=== PATIENT | male | born 1960 | race Caucasian/White ===

== ENCOUNTER 2017-07-26 08:36 | Emergency (ER) | payer BC ==
[~2017-07-26] VITALS: Ht 185.4 cm; Wt 108.0 kg
[~2017-07-26 08:36] MED LIST: AMTUNK
[2017-07-26 08:38] VITALS: Ht 185.4 cm; Wt 108.0 kg
[2017-07-26] MEDS ORDERED: ONDANSETRON INJ 2 MG/ML 2 ML VIAL IV STA (09:12)
[2017-07-26] MEDS ORDERED: SODIUM CHLORIDE 0.9% 1000ML 1,000 ML IV STA (09:12)
[2017-07-26] MEDS ORDERED: MoRPHine SULFATE 4 MG/ML 1 ML CARP\\VIAL IV STA (09:12)
--- NOTE | 2017-07-26 09:30 | EMERGENCY ROOM VISIT NOTE ---
History Report prepared by Bryce: Johny Grey Under the Supervision of: Dr. Jeussita Ho M.D. First contact with patient: 08:53 Chief Complaint: ABDOMINAL PAIN Stated Complaint: PAIN UPPER ABDOMEN THROUGH TO BACK Nursing Triage Summary: pt to the ED with c/o upper abd pain to his back that was constant all night no n/v/d no blood in stool feeling "real bloated" History of Present Illness The patient is a 56 year old male who presents to the Emergency Room with complaints of constant upper abdominal pain starting last night after dinner. The patient currently rates his pain as a 6-7/10 in severity, and he states that it was 9/10 last night, and he describes it as a sharp pain. The patient states that the pain radiates into his back, and he feels like he is having some abdominal bloating. The patient denies any fever, chills, chest pain, shortness of breath, foot swelling, urinary symptoms, nausea, vomiting, diarrhea , and constipation. He reports that he has a cough, though this is not unusual for him. He states that he has not taken any medications for the pain. The patient denies any history of gallbladder problems, diabetes, and GERD. 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 The patient drinks a few beers per month, and he is a former smoker that last smoked a year and a half ago. He notes that he has had similar pain for the past 6 months, and he states that his last bowel moment was this morning, and it was normal. The patient states that he takes indomethacin for headaches. Source of History: patient Onset: last night after dinner Position: abdomen (upper) Symptom Intensity: 6-7/10 Quality: sharp Timing: constant Associated Symptoms: No fevers, No chills, No chest pain, No SOB, No nausea , No vomiting, No diarrhea, No urinary symptoms Note: Associated symptoms: Radiating into his back and abdominal bloating. Review of Systems See HPI for pertinent positives & negatives. A total of 10 systems reviewed and were otherwise negative. Past Medical & Surgical Medical Problems: (1) H/O unilateral nephrectomy (2) HTN (hypertension) Social History Alcohol Use: occasionally Marital Status: Housing Status: lives with family Current/Historical Medications Scheduled Fluoxetine (Prozac), 20 MG PO QAM Indomethacin (Indocin), 25 MG PO TIDM Lisinopril (Zestril), 10 MG PO QAM Pantoprazole (Protonix), 40 MG PO DAILY Scheduled PRN Cyclobenzaprine Hcl (Flexeril), 10 MG PO TID PRN for Muscle Spasms Hydrocodone/Acetaminophen 5MG/325MG ([place] 5MG/325MG), 1 TAB PO TID PRN for Pain Miscellaneous Medications Amitriptyline Hcl (Elavil Unknown Dose) Allergies Uncoded Allergies: N (Allergy, Unknown, 07/06/02) NKDA (Allergy, Unknown, 07/06/02) Physical Exam Vital Signs Date Time Temp Pulse Resp B/P (MAP) Pulse Ox O2 Delivery O2 Flow Rate FiO2 07/26/17 13:20 59 18 129/66 95 Room Air 07/26/17 12:42 60 07/26/17 10:28 36.7 62 16 157/96 95 Room Air 07/26/17 09:06 63 07/26/17 08:38 36.7 74 18 191/83 95 Room Air Physical Exam Vital signs reviewed. General: Well-appearing male, in no significant distress. HEENT: No scleral icterus, PERRLA, neck supple. Atraumatic. Cardiovascular: Regular rate and rhythm, no extra sounds. Pulmonary: Clear to auscultation bilaterally, normal work of breathing. Abdomen: Mild tenderness to the epigastric region. No rebound. No guarding. Some right CVA tenderness. Musculoskeletal: Atraumatic, no peripheral edema. Neurologic: Patient awake alert and oriented x 3 Skin: Warm, dry, no rash Medical Decision & Procedures ER Provider Diagnostic Interpretation: Radiology results as stated below per my review and radiologist interpretation: GALLBLADDER-ABD LIMITED CLINICAL HISTORY: 56 years-old Male presenting with epigastric pain. TECHNIQUE: Real-time grayscale and limited color Doppler ultrasound imaging of the abdomen limited to the right upper quadrant was performed. COMPARISON: None. FINDINGS: Pancreas: Visualized portions of the pancreatic head and body normal. Liver: Normal echogenicity and echotexture. The liver measures 15.9 cm in maximal sagittal dimension. No sonographic evidence of hepatic mass. Main portal vein patent with normal directional flow. Biliary: No intrahepatic biliary ductal dilatation. Common bile duct measures up to 4 mm in diameter. Gallbladder: Gallstone without evidence of gallbladder distention, wall thickening, or pericholecystic fluid or inflammatory change. Sonographic Barrios's sign negative. Right kidney: Normal in appearance. No hydronephrosis. Ascites: None. IMPRESSION: Cholelithiasis without evidence of biliary ductal dilatation or cholecystitis. Electronically signed by: Kan Dos Santos M.D. 07/26/2017 10:12 AM Dictated Date/Time: 07/26/2017 10:11 AM Laboratory Results 07/26/17 09:00 Red Blood Count 5.25, Mean Corpuscular Volume 86.1, Mean Corpuscular Hemoglobin 30.7, Mean Corpuscular Hemoglobin Concent 35.6, Mean Platelet Volume 9.9, Neutrophils (%) (Auto) 73.8, Lymphocytes (%) (Auto) 17.7, Monocytes (%) (Auto) 6.6, Eosinophils (%) (Auto) 1.1, Basophils (%) (Auto) 0.6, Neutrophils # (Auto) 6.12, Lymphocytes # (Auto) 1.47, Monocytes # (Auto) 0.55, Eosinophils # (Auto) 0.09, Basophils # (Auto) 0.05 07/26/17 09:00 Test 07/26/17 09:00 07/26/17 09:23 07/26/17 11:45 White Blood Count 8.30 K/uL (4.8-10.8) Red Blood Count 5.25 M/uL (4.7-6.1) Hemoglobin 16.1 g/dL (14.0-18.0) Hematocrit 45.2 % (42-52) Mean Corpuscular Volume 86.1 fL (80-100) Mean Corpuscular Hemoglobin 30.7 pg (25-34) Mean Corpuscular Hemoglobin Concent 35.6 g/dl (32-36) Platelet Count 298 K/uL (130-400) Mean Platelet Volume 9.9 fL (7.4-10.4) Neutrophils (%) (Auto) 73.8 % Lymphocytes (%) (Auto) 17.7 % Monocytes (%) (Auto) 6.6 % Eosinophils (%) (Auto) 1.1 % Basophils (%) (Auto) 0.6 % Neutrophils # (Auto) 6.12 K/uL (1.4-6.5) Lymphocytes # (Auto) 1.47 K/uL (1.2-3.4) Monocytes # (Auto) 0.55 K/uL (0.11-0.59) Eosinophils # (Auto) 0.09 K/uL (0-0.5) Basophils # (Auto) 0.05 K/uL (0-0.2) RDW Standard Deviation 40.9 fL (36.4-46.3) RDW Coefficient of Variation 13.0 % (11.5-14.5) Immature Granulocyte % (Auto) 0.2 % Immature Granulocyte # (Auto) 0.02 K/uL (0.00-0.02) Anion Gap 6.0 mmol/L (3-11) Est Creatinine Clear Calc Drug Dose 94.6 ml/min Estimated GFR () 85.0 Estimated GFR (Non- 73.3 BUN/Creatinine Ratio 12.1 (10-20) Calcium Level 8.7 mg/dl (8.5-10.1) Total Bilirubin 0.5 mg/dl (0.2-1) Direct Bilirubin 0.1 mg/dl (0-0.2) Aspartate Amino Transf (AST/SGOT) 21 U/L (15-37) Alanine Aminotransferase (ALT/SGPT) 52 U/L (12-78) Alkaline Phosphatase 147 U/L (45-117) Total Protein 6.8 gm/dl (6.4-8.2) Albumin 3.6 gm/dl (3.4-5.0) Lipase 202 U/L (73-393) Bedside D-Dimer 327 ng/mlFEU (0-450) Urine Color YELLOW Urine Appearance CLEAR (CLEAR) Urine pH 5.5 (4.5-7.5) Urine Specific [place] 1.017 (1.000-1.030) Urine Protein 3+ (NEG) Urine Glucose (UA) NEG (NEG) Urine Ketones NEG (NEG) Urine Occult Blood NEG (NEG) Urine Nitrite NEG (NEG) Urine Bilirubin NEG (NEG) Urine Urobilinogen NEG (NEG) Urine Leukocyte Esterase NEG (NEG) Urine WBC (Auto) 1-5 /hpf (0-5) Urine RBC (Auto) 0-4 /hpf (0-4) Urine Hyaline Casts (Auto) 0 /lpf (0-5) Urine Epithelial Cells (Auto) 5-10 /lpf (0-5) Urine Bacteria (Auto) NEG (NEG) Laboratory results per my review. Medications Administered Medications (Trade) Dose Ordered Sig/[place] Route Start Time Stop Time Status Last Admin Dose Admin Sodium Chloride 1,000 ml @ 200 mls/hr Q5H STAT IV 07/26/17 09:12 07/26/17 14:11 DC 07/26/17 09:25 200 MLS/HR Morphine Sulfate (MoRPHine SULFATE INJ) 4 mg NOW STAT IV 07/26/17 09:12 07/26/17 09:17 DC 07/26/17 09:28 4 MG Ondansetron HCl (Zofran Inj) 4 mg NOW STAT IV 07/26/17 09:12 07/26/17 09:17 DC 07/26/17 09:25 4 MG Lidocaine HCl (Viscous Lidocaine 2% Soln) 10 ml NOW STAT PO 07/26/17 10:24 07/26/17 10:25 DC 07/26/17 11:04 10 ML Al Hydroxide/Mg Hydroxide (Maalox Susp) 30 ml NOW STAT PO 07/26/17 10:24 07/26/17 10:25 DC 07/26/17 11:04 30 ML ED Course 0853: Past medical records reviewed. The patient was evaluated in room A4. A complete history and physical examination was performed. 0912: Zofran 4mg IV, Morhpine Sulfate 4mg IV, Sodium Chloride 1000 ml @ 200 mls/ hr IV 1024: Maalox Susp 30ml PO, Viscous Lidocaine 2% 10ml PO 1133: I reevaluated the patient, and he was doing well. 1350: Upon reevaluation, the patient appeared to have improvement of his symptoms. I discussed findings with him. He verbalized agreement of the treatment plan. He was discharged home. Medical Decision Differential diagnosis: Etiologies such as appendicitis, diverticulitis, PUD, biliary pathology, UTI, pancreatitis, obstruction, mesenteric ischemia, aortic pathology, infections, inflammatory bowel disease, renal colic, as well as others were entertained. This patient was evaluated and appeared to be in no significant distress. Physical examination reveals epigastric abdominal tenderness. Patient was hydrated with normal saline solution, given IV morphine and Zofran for his discomfort. Ultrasound right upper quadrant consistent with cholelithiasis without evidence of acute cholecystitis. Laboratory work is fairly unrevealing. Patient was informed of the findings. I suspect the patient is suffering from an acute gastritis related to his NSAID use rather than asymptomatic cholelithiasis. The patient was referred to general surgery for evaluation of the gallbladder. He was advised to stop taking the indomethacin. He will start Protonix 40 mg daily. He will return to the ER for worsening of symptoms or any medical concerns. Medication Reconcilliation Current Medication List: was personally reviewed by me Blood Pressure Screening Patient's blood pressure: Elevated blood pressure Blood pressure disposition: Elevated BP felt to be situational Impression Primary Impression: Gastritis Additional Impression: Cholelithiasis Scribe Attestation The scribe's documentation has been prepared under my direction and personally reviewed by me in its entirety. I confirm that the note above accurately reflects all work, treatment, procedures, and medical decision making performed by me. Departure Information Dispostion Home / Self-Care Prescriptions Hydrocodone/Acetaminophen 5MG/325MG ([place] 5MG/325MG) Tab 1 TAB PO TID Y for Pain for 5 Days, #15 TAB PRN PAIN Prov: Jesusita Ho M.D. 07/26/17 Pantoprazole (Protonix) 40 Mg Tab 40 MG PO DAILY, #30 TAB Prov: Jesusita Ho M.D. 07/26/17 Referrals Tommie Patterson (PCP) Forms Call Back Authorization, HOME CARE DOCUMENTATION FORM, IMPORTANT VISIT INFORMATION Patient Instructions My [facility] Additional Instructions Diagnosis: Gastritis, cholelithiasis Protonix 40 mg daily for the next 30 days. Stop taking the indomethacin. Follow-up with your physician for reevaluation, contact general surgery for evaluation of your gallbladder. Return to the emergency department for worsening of symptoms or any medical concerns. Problem Qualifiers
[2017-07-26 09:39] LABS: BASO % 0.6 %; BASO ABS # 0.05 K/uL (0-0.2); EOS % 1.1 %; EOS ABS # 0.09 K/uL (0-0.5); HEMATOCRIT 45.2 % (42-52); HEMOGLOBIN 16.1 g/dL (14.0-18.0); IG# 0.02 K/uL (0.00-0.02); LYMPH % 17.7 %; LYMPH ABS # 1.47 K/uL (1.2-3.4); MEAN CELL VOLUME 86.1 fL (80-100); MEAN CORPUSCULAR HEMOGLOBIN 30.7 pg (25-34); MEAN CORPUSCULAR HGB CONC 35.6 g/dl (32-36); MEAN PLATELET VOLUME 9.9 fL (7.4-10.4); MONO % 6.6 %; MONO ABS # 0.55 K/uL (0.11-0.59); NEUT % 73.8 %; NEUT ABS # 6.12 K/uL (1.4-6.5); PLATELET COUNT 298 K/uL (130-400); RED CELL DISTRIBUTION WIDTH SD 40.9 fL (36.4-46.3)
[2017-07-26 10:07] LABS: ALBUMIN 3.6 gm/dl (3.4-5.0); CALCIUM 8.7 mg/dl (8.5-10.1); CREATININE 1.11 mg/dl (0.60-1.40); POTASSIUM 4.4 mmol/L (3.5-5.1)
[2017-07-26] MEDS ORDERED: FLUO20CA35 PO (10:07)
[2017-07-26] MEDS ORDERED: LISI-461 PO (10:07)
[2017-07-26] MEDS ORDERED: CYCL5TAB PO (10:07)
[2017-07-26 10:09] LABS: TOTAL PROTEIN 6.8 gm/dl (6.4-8.2)
--- NOTE | 2017-07-26 10:13 | DIAGNOSTIC IMAGING REPORT ---
GALLBLADDER-ABD LIMITED CLINICAL HISTORY: 56 years-old Male presenting with epigastric pain. TECHNIQUE: Real-time grayscale and limited color Doppler ultrasound imaging of the abdomen limited to the right upper quadrant was performed. COMPARISON: None. FINDINGS: Pancreas: Visualized portions of the pancreatic head and body normal. Liver: Normal echogenicity and echotexture. The liver measures 15.9 cm in maximal sagittal dimension. No sonographic evidence of hepatic mass. Main portal vein patent with normal directional flow. Biliary: No intrahepatic biliary ductal dilatation. Common bile duct measures up to 4 mm in diameter. Gallbladder: Gallstone without evidence of gallbladder distention, wall thickening, or pericholecystic fluid or inflammatory change. Sonographic Barrios's sign negative. Right kidney: Normal in appearance. No hydronephrosis. Ascites: None. IMPRESSION: Cholelithiasis without evidence of biliary ductal dilatation or cholecystitis. Electronically signed by: Kan Dos Santos M.D. 07/26/2017 10:12 AM Dictated Date/Time: 07/26/2017 10:11 AM
[2017-07-26] MEDS ORDERED: CYCL10TA6 PO (10:15)
[2017-07-26] MEDS ORDERED: INDO-22 PO (10:16)
[2017-07-26] MEDS ORDERED: ALUMINUM/MAGNESIUM SUSP 30 ML UDC PO STA (10:24)
[2017-07-26] MEDS ORDERED: LIDOCAINE HCL 2% VISC SOLN 20 ML UDC PO STA (10:24)
[2017-07-26 10:28] VITALS: TEMP 36.7
[2017-07-26 13:20] VITALS: BP 129/66; PULSE 59; O2SAT 95
[2017-07-26] MEDS ORDERED: PANT40TA PO (13:29)
[2017-07-26] MEDS ORDERED: HYDR-5688 PO (14:27)
== END 2017-07-26 14:01 | disposition home or self-care (01) ==
LOC: C.EDB 08:38 → C.EDA 14:01
DX: K29.70 Gastritis, unspecified, without bleeding (principal); K80.20 Calculus of gallbladder without cholecystitis without obstruction; M54.9 Dorsalgia, unspecified; R05 Cough; I10 Essential (primary) hypertension; Z90.5 Acquired absence of kidney; Z79.899 Other long term (current) drug therapy; Z87.891 Personal history of nicotine dependence

== ENCOUNTER 2017-08-09 08:37 | Day surgery (SDC) | payer BC ==
[2017-08-03 14:15] VITALS: BMI 31.0
--- NOTE | 2017-08-03 14:40 | PAT Medication Instructions ---
Service Date Aug 03, 2017. Current Home Medication List Cyclobenzaprine Hcl (Flexeril), 10 MG PO TID PRN for Muscle Spasms Fluoxetine (Prozac), 20 MG PO QAM Indomethacin (Indocin), 25 MG PO BIDM Lisinopril (Prinivil), 20 MG PO QAM Pantoprazole (Protonix), 20 MG PO QAM Medication Instructions For Your Scheduled Surgery - Check with surgeon for instructions: Indomethacin (Indocin), 25 MG PO BIDM - Hold the following medications the morning of surgery: Cyclobenzaprine Hcl (Flexeril), 10 MG PO TID PRN for Muscle Spasms Lisinopril (Prinivil), 20 MG PO QAM - Take the following medications the morning of surgery with a sip of water: Pantoprazole (Protonix), 20 MG PO QAM Fluoxetine (Prozac), 20 MG PO QAM - Take the following medications as scheduled the night before surgery: Cyclobenzaprine Hcl (Flexeril), 10 MG PO TID PRN for Muscle Spasms (if needed) If you have any questions please call us at [phone] or [phone] or [phone]
--- NOTE | 2017-08-03 15:45 | DIAGNOSTIC IMAGING REPORT ---
CHEST 2 VIEWS ROUTINE HISTORY: Preop. COMPARISON: None. FINDINGS: The lungs are clear. Cardiac silhouette is normal in size. No pleural effusions. No pneumothorax. IMPRESSION: No acute process. Electronically signed by: Meliton De Paz M.D. 08/03/2017 3:43 PM Dictated Date/Time: 08/03/2017 3:42 PM
[~2017-08-09] VITALS: Ht 185.4 cm; Wt 107.9 kg
[~2017-08-09 08:37] MED LIST changes: -AMTUNK; +CEFAZOLIN 2000MG IV PUSH 15 ML IV SCH; +CYCL10TA6 PO; +FLUO20CA35 PO; +INDO-22 PO; +LACTATED RINGER'S 1000ML 1,000 ML IV SCH; +LISI20TA3 PO; +PRT/20 PO
[2017-08-09] MEDS ORDERED: HYDROmorphone INJ 1 MG/ML SYR IV PRN (08:45)
[2017-08-09] MEDS ORDERED: EpHEDrine SULFATE INJ 50 MG/ML AMP IV PRN (08:45)
[2017-08-09] MEDS ORDERED: ATROPINE SULFATE 0.1 MG/ML 5ML SYR IV PRN (08:45)
[2017-08-09] MEDS ORDERED: ONDANSETRON INJ 2 MG/ML 2 ML VIAL IV PRN ×2 (08:45→13:00)
[2017-08-09 09:01] VITALS: BP 163/98; PULSE 68; TEMP 36.7; O2SAT 95; Ht 185.4 cm; Wt 107.9 kg
[2017-08-09] MEDS ORDERED: NEOSTIGMINE METHYLSULFATE 5 MG/5 ML SYR ONE (10:37)
[2017-08-09] MEDS ORDERED: ROCURONIUM BROMIDE 10 MG/ML 5 ML VIAL IV ONE (10:37)
[2017-08-09] MEDS ORDERED: LIDOCAINE 2% 20 MG/ML 5ML SYR IV ONE (10:37)
[2017-08-09] MEDS ORDERED: PROPOFOL IV EMULSION 10 MG/ML 20 ML VIAL IV ONE (10:37)
[2017-08-09] MEDS ORDERED: LIDOCAINE HCL 2% 2 ML VIAL (20MG/ML) ONE (10:37)
[2017-08-09] MEDS ORDERED: GLYCOPYRROLATE INJ 0.2 MG/ML VIAL ONE (10:37)
[2017-08-09] MEDS ORDERED: FENTANYL CITRATE INJ 50 MCG/1 ML 2 ML VIAL ONE ×2 (10:37→12:59)
[2017-08-09] MEDS ORDERED: MIDAZOLAM HCL 1 MG/ML 2ML VIAL ONE (10:37)
[2017-08-09] MEDS ORDERED: DEXAMETHASONE SOD INJ 4 MG/ML VIAL ONE (10:37)
[2017-08-09] MEDS ORDERED: ONDANSETRON INJ 2 MG/ML 2 ML VIAL ONE (10:37)
--- NOTE | 2017-08-09 10:53 | History & Physical Bridge Note ---
H&P Re-Evaluation Bridge Note: I have examined the patient, reviewed the History & Physical and in the interval since the performance of the History & Physical I have noted the following changes of clinical significance: No changes noted
[2017-08-09] MEDS ORDERED: OXYC-57 PO (10:58)
--- NOTE | 2017-08-09 11:00 | Discharge Instructions ---
Discharge Instructions Date of Service Aug 09, 2017. Visit Reason for Visit: Cholelithiasis, Umbilical Hernia Discharge Discharge Diagnosis / Problem: laparoscopic cholecystectomy Discharge Goals Goal(s): Decrease discomfort Activity Recommendations Activity Limitations: as noted below Lifting Limitations: no more than 10 pounds Shower/Bathe: no limitations Driving or Machine Use: resume 3 days after discharge Anesthesia . Post Anesthesia Instructions: If you have had General Anesthesia or IV Sedation: * Do not drive today. * Resume driving when surgeon permits. * Do not make important decisions or sign legal documents today. * Call surgeon for: 1. Temperature elevations greater than 101 degrees F. 2. Uncontrollable pain. 3. Excessive bleeding. 4. Persistent nausea and vomiting. 5. Medication intolerance (nausea, vomiting or rash). * For nausea and vomiting use only clear liquids such as: tea, soda, bouillon until nausea subsides, then gradually increase diet as tolerated. * If you have any concerns or questions, call your surgeon's office. If physician is unavailable and it is an emergency, call 911 or go to the nearest emergency room. . Instructions / Follow-Up Instructions / Follow-Up Dr. Alston in 1-2 weeks as planned, call [phone] if you do not have an appt or have any questions Diet Recommendations Recommended Home Diet: no limitations Pending Studies Studies pending at discharge: yes List of pending studies: pathology Medical Emergencies . Who to Call and When: Medical Emergencies: If at any time you feel your situation is an emergency, please call 911 immediately. . Non-Emergent Contact Non-Emergency issues call your: Surgeon Call Non-Emergent contact if: you have a fever, temperature is above 101.5, your pain is not controlled, wound has increased redness, you have any medication questions . . "Provider Documentation" section prepared by Terence Kuhn. .
[2017-08-09] MEDS ORDERED: BUPIVACAINE 0.5 % 5 MG/1 ML MPF 30ML VIAL ONE (11:09)
[2017-08-09] MEDS ORDERED: EpHEDrine SULFATE INJ 50 MG/ML AMP ONE (11:47)
--- NOTE | 2017-08-09 12:51 | [facility] Post Operative Brief Note ---
Immediate Operative Summary Operative Date Aug 09, 2017. Pre-Operative Diagnosis Cholelithiasis, Umbilical Hernia Post-Operative Diagnosis Cholelithiasis with chronic cholecystitis, Umbilical Hernia Procedure(s) Performed Laparoscopic Cholecystectomy, Umbilical Hernia Repair Surgeon Dr. Alston Financial Service Representative Surgeon(s) Bola Kuhn PA-C Estimated Blood Loss 7 cc Findings Consistent with Post-Op Diagnosis Window of safety obtained, umbilical hernia closed primarily Specimens A: Gallbladder and contents Drains None Anesthesia Type General Complication(s) none Disposition Accompanied Pt To Recover: no Disposition: Recovery Room / PACU
--- NOTE | 2017-08-09 12:58 | [facility] Operative Report ---
Operative Report Operative Date Aug 09, 2017. Pre-Operative Diagnosis Cholelithiasis, Umbilical Hernia Post-Operative Diagnosis Cholelithiasis with chronic cholecystitis, umbilical hernia Procedure(s) Performed Laparoscopic cholecystectomy, primary umbilical hernia repair Surgeon Dr. Alston Speech And Hearing Director Surgeon(s) Bola Kuhn PA-C Estimated Blood Loss 7 cc Findings Window of safety obtained, umbilical hernia defect closed primarily Specimens A: Gallbladder and contents Drains None Anesthesia General Complication(s) None Disposition Recovery Room / PACU Indications 56-year-old male with symptomatic cholelithiasis as well as symptomatic reducible umbilical hernia, plan for laparoscopic cholecystectomy with possible cholangiogram and open umbilical hernia repair. The risks of the procedure were discussed, all questions were answered, and the patient agreed to proceed with surgery as planned. Description of Procedure The patient was properly identified, consented, and taken to the operating room where he was placed in the supine position. General endotracheal anesthesia was induced. SCDs and a safety belt were placed. Preoperative antibiotics were administered. The patient's abdomen was prepped and draped in the standard sterile fashion. A surgical timeout was performed and all parties were in agreement that this was the correct patient and procedure to be performed and we continued as planned. A curvilinear infraumbilical incision was made and deepened down to the fascia with blunt dissection. The umbilical stalk was circumferentially dissected with a Olena, and divided below the level of the skin. A 3 cm fascial defect was encountered. The hernia was reduced. The fascia anteriorly and posteriorly was cleared of investing tissue for several centimeters. Stay suture of 0 Vicryl was placed and a Maloney trocar was inserted. The abdomen was insufflated with carbon dioxide which the patient tolerated without incident. The laparoscope was inserted and no damage from initial trocar placement was noted, no gross abnormalities were noted within the 4 quadrants of the abdomen. 5 mm ports were then placed in the subxiphoid position in the midline and 2 in the right subcostal position. The patient was placed in reverse Trendelenburg position and rotated towards the left. The dome of the gallbladder was retracted towards the left upper quadrant and the infundibulum was retracted toward the right lower quadrant revealing Calot' s triangle. There is moderate inflammation and the omentum was densely adhesed to the gallbladder. This is taken down with a combination of blunt dissection and cautery. Peritoneal attachments were taken down with electrocautery and blunt dissection. The cystic duct was circumferentially dissected. A window of safety was obtained showing the cystic duct entering the gallbladder with no aberrant structures noted. The cystic duct was doubly clipped and divided. 2 small cystic arteries were identified and clipped and divided. The gallbladder was then lifted off the gallbladder fossa with electrocautery. The gallbladder was placed in an Endo Catch bag and removed through the umbilical port site. The right upper quadrant was irrigated and hemostasis was found to be good. 5 mm trochars were removed under direct visualization and the abdomen was allowed to collapse. Hemostasis was achieved within the wound. The hernia defect was closed primarily with interrupted 0 Nurolon sutures. The wound was irrigated and hemostasis confirmed. The umbilicus was tacked down to the fascia with 3-0 Vicryl sutures. Local anesthetic in the form of 0.5% Marcaine was injected in the fascia and along the skin incision. The skin was closed with interrupted 3- 0 Vicryl deep dermal sutures, followed by 4-0 Monocryl running subcuticular suture. The skin of all ports was closed with 4-0 Monocryl subcuticular sutures. Dermabond was placed over the wounds. The patient was extubated in the operating room and taken to the PACU where he recovered without apparent incident. All sponge, instrument and needle counts were correct at the conclusion of the procedure. The patient tolerated the procedure well. The physician's primary teaching assistant was present and scrubbed for the entirety of the case. He was essential in positioning the patient, prepping and draping, entry to the abdomen, retraction and exposure, controlling the camera, removal of the gallbladder, closure of the incisions, and placement of the dressings. I attest to the content of the Intraoperative Record and any orders documented therein. Any exceptions are noted below.
[2017-08-09] MEDS ORDERED: OXYCODONE/ACETAMINOPHEN 5-325 TAB PO PRN (13:00)
[2017-08-09] MEDS ORDERED: LACTATED RINGER'S 1000ML 1,000 ML IV SCH (13:00)
[2017-08-09] MEDS ORDERED: MoRPHine SULFATE 2 MG/ML CARP IV PRN (13:00)
[2017-08-09] MEDS: FENTANYL CITRATE INJ 50 MCG/1 ML 2 ML VIAL IV PRN ×4 (13:08→13:28)
[2017-08-09] MEDS ORDERED: LABETALOL HCL IV 5 MG/ML 20ML IV ONE (13:22)
[2017-08-09] MEDS ORDERED: LABETALOL HCL IV 5 MG/ML 20ML IV PRN (13:30)
[2017-08-09] MEDS ORDERED: HydrALAZINE HCL 20 MG/ML VIAL ONE (13:40)
[2017-08-09] MEDS ORDERED: HydrALAZINE HCL 20 MG/ML VIAL IV. ONE (13:45)
[2017-08-09] MEDS ORDERED: HYDROmorphone INJ 1 MG/ML SYR ONE (13:54)
--- NOTE | 2017-08-09 14:24 | Anesthesiology Progress Note ---
Anesthesia Post Op Note Date & Time Aug 09, 2017 at 14:23 Vital Signs Pain Intensity: 6 Vital Signs Past 12 Hours Date Time Temp Pulse Resp B/P (MAP) Pulse Ox O2 Delivery O2 Flow Rate FiO2 08/09/17 14:10 91 16 176/102 92 Nasal Cannula 4 08/09/17 14:00 69 16 164/102 92 Nasal Cannula 4 08/09/17 13:50 84 16 177/103 91 Nasal Cannula 4 08/09/17 13:40 61 14 186/111 91 Nasal Cannula 4 08/09/17 13:30 76 16 173/108 91 Nasal Cannula 4 08/09/17 13:20 77 12 183/121 91 Nasal Cannula 4 08/09/17 13:10 88 12 174/113 91 Nasal Cannula 4 08/09/17 13:04 36.0 92 12 192/119 95 Oxymask 5 08/09/17 09:01 36.7 68 20 163/98 (119) 95 Room Air Notes Mental Status: alert / awake / arousable, participated in evaluation Pt Amnestic to Procedure: Yes Nausea / Vomiting: adequately controlled Pain: adequately controlled Airway Patency, RR, SpO2: stable & adequate BP & HR: stable & adequate Hydration State: stable & adequate Anesthetic Complications: no major complications apparent Anesthetic Complications: patient is a poorly controlled HTN - BP in PACU near preoperative baseline after labetalol, hydralazine, fentanyl and dilaudid. Plan to continue to monitor in phase 2.
[2017-08-09 14:35] VITALS: BP 168/92; PULSE 94; TEMP 37; O2SAT 92
[2017-08-09 15:08] VITALS: BP 181/99; PULSE 104; TEMP 36.7; O2SAT 92
[2017-08-09 15:38] VITALS: BP 182/95; PULSE 99; TEMP 36.6; O2SAT 93
[2017-08-09 16:30] VITALS: BP 180/96; PULSE 104; TEMP 37.1; O2SAT 91
[2017-08-09] MEDS ORDERED: KETOROLAC TROMETHAMINE 30 MG/ML VIAL IV. ONE (17:00)
[2017-08-09] MEDS ORDERED: NURSING VERBAL MED ORDER ONE (17:00)
[2017-08-09 17:25] VITALS: BP 160/82; PULSE 100; TEMP 36.6; O2SAT 92
== END 2017-08-09 18:20 | disposition home or self-care (01) ==
LOC: C.ACU 08:37
PROVIDERS: ATTEND Surgery
DX: K80.20 Calculus of gallbladder without cholecystitis without obstruction (principal); K42.9 Umbilical hernia without obstruction or gangrene; F32.9 Major depressive disorder, single episode, unspecified; E66.9 Obesity, unspecified; Z68.31 Body mass index [BMI] 31.0-31.9, adult; I10 Essential (primary) hypertension; Z90.5 Acquired absence of kidney; Z87.891 Personal history of nicotine dependence; Z98.890 Other specified postprocedural states; Z79.899 Other long term (current) drug therapy; Z87.09 Personal history of other diseases of the respiratory system

== ENCOUNTER 2021-04-26 15:32 | Inpatient (IN) ==
[2021-04-26] MEDS ORDERED: ONDANSETRON INJ 2 MG/ML 2 ML VIAL IV STA (16:34)
[2021-04-26 16:35] LABS: Hematocrit (blood only) 51.3 % (42-52); Hemoglobin 17.6 g/dL (14.0-18.0); Mean Corpuscular Hemoglobin 30.1 pg (25-34); Mean Corpuscular Hgb Conc 34.3 g/dL (32-36); Mean Corpuscular Volume 87.7 fL (80-100); Mean Platelet Volume 10.5 fL (7.4-10.4); Platelet Count 164 K/uL (130-400); RDW Coefficient of Variation 13.2 % (11.5-14.5); RDW Standard Deviation 42.4 fL (36.4-46.3); Red Blood Count 5.85 M/uL (4.7-6.1)
[2021-04-26 16:44] LABS: Partial Thromboplastin Ratio 1.1; Partial Thromboplastin Time 29.1 Seconds (21.0-31.0); Prothrombin Time 10.5 Seconds (9.0-12.0)
[2021-04-26 16:53] LABS: Albumin Level 3.3 gm/dl (3.4-5.0); Creatinine Clr Calc Pharmacy 60.1 ml/min; Est GFR (African American) 52.7 ml/min; Est GFR (Non-African American) 45.5 ml/min; Magnesium 2.3 mg/dl (1.8-2.4)
[2021-04-26 16:54] LABS: Immature Granulocytes # (auto) 0.02 K/uL (0.00-0.02); Immature Granulocytes % (auto) 0.3 %; Lymphocytes # (auto) 0.78 K/uL (1.2-3.4); Lymphocytes % (auto) 11.1 %; Monocytes # (auto) 0.75 K/uL (0.11-0.59); Monocytes % (auto) 10.7 %; Neutrophils # (auto) 5.45 K/uL (1.4-6.5); Neutrophils % (auto) 77.9 %
[2021-04-26 16:57] LABS: Base Excess VBG 2.2 mEq/L; HCO3 VBG 28 mmol/L; Oxygen Saturation VBG < 60.0 %; PCO2 VBG 45 mmHg (38-50); PO2 VBG 15 mmHg; pH VBG 7.41 (7.36-7.41)
[2021-04-26 16:58] LABS: Albumin Globulin Ratio 0.7 (0.9-2); Bilirubin,Total 1.2 mg/dl (0.2-1); Globulin 4.4 gm/dl (2.5-4.0); Total Protein 7.7 gm/dl (6.4-8.2); Troponin I 0.024 ng/ml (0-0.045)
--- NOTE | 2021-04-26 17:12 | XRay Report ---
XR chest 1V portable CLINICAL HISTORY: SEPSIS COMPARISON STUDY: Chest radiograph October 25, 2019. FINDINGS: Lung volumes are at the lower limits of normal. There is no pneumothorax or pleural effusio n. Incidental note is made of multiple old right rib fractures. There is mild cardiomegaly without ev idence for pulmonary edema. Left subclavian biventricular pacer/AICD is in place. Mild right lower link ng opacity is present. There is also possible left basilar consolidation. IMPRESSION: Bilateral lower lung opacities which favor an infectious process. Radiographic follow-up to ensure resolution is recommended. ACT 112: Negative or not required by law. Electronically signed by: Mikey Beltran M.D. 04/26/2021 5:11 PM
[2021-04-26] MEDS ORDERED: SODIUM CHLORIDE 0.9% 1000ML 1,000 ML IV ONE (17:38)
[2021-04-26] MEDS ORDERED: dexAMETHasone 6 MG in SYRINGE 0 ML IV ONE ×2 (18:13→19:11)
[2021-04-26] MEDS ORDERED: OPTIRAY 320 125ml IV ONE (18:24)
[2021-04-26] MEDS ORDERED: DEXAMETHASONE SOD INJ 4 MG/ML VIAL ONE (18:29)
--- NOTE | 2021-04-26 18:50 | Emergency Department Note ---
History of Present Illness General Chief complaint: Illness Stated complaint: FATIGUE, COVID+ Time Seen by Provider: 04/26/21 16:15 History of Present Illness Provider complaint: Shortness of breath cough fatigue diarrhea nausea vomiting Covid positive Onset (ago): week(s) 1 Maximum Pain Intensity: 7 Associated symptoms: + cough, + fever/chills, + headaches, + loss of appetite, + malaise, + nausea/vomiting, + shortness of breath and + weakness 60-year-old male presents emergency department with nausea, shortness of breath, cough, fatigue, diarrhea, vomiting, Covid positive. Patient states his symptoms began 1 week ago. Patient states he tested positive for COVID-19 on April 20 and received monoclonal antibody infusion on April 24, 2021, 2 days ago. He states since getting the monoclonal antibody infusion he states he feels worse. He denies any hemoptysis hematuria or dysuria. Home Medications Medication Instructions Recorded Confirmed Type albuterol sulfate 90 mcg/actuation 2 puff INHALATION Q6H PRN 10/25/19 10/25/19 H istory aerosol inhaler atorvastatin 40 mg tablet 40 mg PO DAILY 10/25/19 10/25/19 History carvedilol 25 mg tablet 25 mg PO BID 10/25/19 10/25/19 History cyclobenzaprine 10 mg tablet 10 mg PO TID PRN 10/25/19 10/25/19 History fluoxetine 20 mg capsule 20 mg PO DAILY 10/25/19 10/25/19 History fluticasone propionate 50 1 spray INTRANASAL BID 10/25/19 10/25/19 History mcg/actuation nasal spray,suspension (Flonase Allergy Relief) lisinopril 20 mg tablet 20 mg PO DAILY 10/25/19 10/25/19 History metformin 500 mg tablet 500 mg PO QPM 10/25/19 10/25/19 History naproxen 500 mg tablet 500 mg PO BID PRN #14 tab 10/25/19 Rx sumatriptan succinate 100 mg tablet 100 mg PO .DAILY/UD PRN 10/25/19 10/25/19 History tramadol 50 mg tablet 50 mg PO BID PRN 10/25/19 10/25/19 History Allergies Allergy/AdvReac Type Severity Reaction Status Date / Time No Known Allergies Allergy Unverified 04/26/21 19:17 Past Med/Surg History Medical History Cardiac pacemaker in situ Cardiomyopathy H/O unilateral nephrectomy History of chronic back pain HTN (hypertension) No pertinent family history Social History Smoking Status: Never smoker Preferred Language: Frisian Feels Safe at Home: Yes Review of Systems A total of 10 systems reviewed and were otherwise negative Physical Exam Vital Signs Vital Signs - 24 hr 04/26/21 15:32 04/26/21 15:36 04/26/21 16:05 Temperature 36.6 C Temperature Source Temporal Artery Scan Pulse Rate 83 77 Pulse Rate [Apical] 75 Pulse Rate from SpO2 Sensor 80 Pulse Rhythm Pulse Rhythm [Apical] Regular Pulse Strength [Apical] Normal Respiratory Rate 20 18 22 Respiratory Effort / Characteristics Non-Labored Non-Labored Respiratory Depth Normal Normal Respiratory Pattern Regular Regular Blood Pressure 98/49 L Blood Pressure [Right Arm] Blood Pressure Mean 65 Blood Pressure Mean [Right Arm] Blood Pressure Position [Right Arm] Pulse Oximetry 93 96 92 Oxygen Delivery Method Room Air Room Air Oxygen Flow Rate Sepsis Recent Fever Within 48 Hours No Sepsis New/Unexplained Change in Mental Status No Sepsis Action Taken by Nursing No Action Required 04/26/21 16:30 04/26/21 16:31 04/26/21 16:46 Temperature Temperature Source Pulse Rate 77 Pulse Rate [Apical] Pulse Rate from SpO2 Sensor 90 Pulse Rhythm Regular Pulse Rhythm [Apical] Pulse Strength [Apical] Respiratory Rate 22 20 Respiratory Effort / Characteristics Non-Labored Respiratory Depth Normal Respiratory Pattern Regular Blood Pressure 127/82 Blood Pressure [Right Arm] 127/82 Blood Pressure Mean 97 Blood Pressure Mean [Right Arm] 97 Blood Pressure Position [Right Arm] Lying Pulse Oximetry 91 92 93 Oxygen Delivery Method Room Air Room Air Oxygen Flow Rate Sepsis Recent Fever Within 48 Hours Sepsis New/Unexplained Change in Mental Status Sepsis Action Taken by Nursing 04/26/21 17:00 04/26/21 17:30 04/26/21 17:49 Temperature Temperature Source Pulse Rate 70 Pulse Rate [Apical] 78 Pulse Rate from SpO2 Sensor 81 76 Pulse Rhythm Pulse Rhythm [Apical] Regular Pulse Strength [Apical] Normal Respiratory Rate 24 19 22 Respiratory Effort / Characteristics Non-Labored Respiratory Depth Normal Respiratory Pattern Regular Blood Pressure 126/79 Blood Pressure [Right Arm] 124/77 Blood Pressure Mean 94 Blood Pressure Mean [Right Arm] 92 Blood Pressure Position [Right Arm] Lying Pulse Oximetry 90 93 93 Oxygen Delivery Method Nasal Cannula Oxygen Flow Rate 2 Sepsis Recent Fever Within 48 Hours Sepsis New/Unexplained Change in Mental Status Sepsis Action Taken by Nursing 04/26/21 18:00 04/26/21 18:30 Temperature Temperature Source Pulse Rate 77 77 Pulse Rate [Apical] Pulse Rate from SpO2 Sensor 76 Pulse Rhythm Pulse Rhythm [Apical] Pulse Strength [Apical] Respiratory Rate 22 21 Respiratory Effort / Characteristics Respiratory Depth Respiratory Pattern Blood Pressure 125/83 125/70 Blood Pressure [Right Arm] Blood Pressure Mean 97 88 Blood Pressure Mean [Right Arm] Blood Pressure Position [Right Arm] Pulse Oximetry 93 92 Oxygen Delivery Method Nasal Cannula Oxygen Flow Rate 3 Sepsis Recent Fever Within 48 Hours Sepsis New/Unexplained Change in Mental Status Sepsis Action Taken by Nursing Physical Exam GENERAL: He is oriented to person, place, and time. He appears well-developed and well-nourished. He does not appear distressed. HENT: Exam performed. - Head: Normocephalic and atraumatic. - Right Ear: External ear normal. No mastoid tenderness. - Left Ear: External ear normal. No mastoid tenderness. - Mouth/Throat: The oropharynx is clear and moist. No trismus in the jaw. No dental abscesses or uvula swelling. No oropharyngeal exudate or tonsillar abscesses. EYES: Conjunctivae and EOM are normal. Pupils are equal, round, and reactive to light. Right eye exhibits no discharge. Left eye exhibits no discharge. No scleral icterus. NECK: Normal range of motion. Neck supple. No JVD present. No spinous process tenderness present. No carotid bruit present. No rigidity. No tracheal deviation and normal range of motion present. No Brudzinski's sign and no Kernig's sign noted. CV: Normal rate, regular rhythm, normal heart sounds and intact distal pulses. There is no peripheral edema. Palpable radial pulses bue. PULM/CHEST: Rhonchi bilaterally. - Chest Wall: He exhibits no tenderness. ABD: The abdomen is soft. Bowel sounds are normal. He has no distension. No mass is present. There is no tenderness. There is no rebound, no guarding, no Mur phy's sign and no tenderness at McBurney's point. Rovsig negative. MUSC/SKEL: Normal range of motion. There is no peripheral edema, tenderness or deformity. LYMPH: No cervical adenopathy. NEURO: He is alert and oriented to person, place, and time. He has normal strength. No cranial nerve deficit or sensory deficit. Coordination and gait normal. GCS eye subscore is 4. GCS verbal subscore is 5. GCS motor subscore is 6. Cerebellar tests wnl. SKIN: Skin is warm and dry. He is not diaphoretic. PSYCH: He has a normal mood and affect. Behavior is normal. Judgment and thought content normal. Course Course 1615: The patient was evaluated in room C7. A complete history and physical exam was performed Cardiac monitoring: An order was placed for continuous cardiac monitoring. The monitor shows a rate of 80 with sinus rhythm 1750: Nursing informed me that the patient became hypoxic going down to 88% on room air requiring 3 L of oxygen via nasal cannula. Labs are within normal limits with the exception of a sodium 128 creatinine 1.61 elevated liver enzymes. Awaiting patient's CTA of the chest. Chest x-ray does show bilateral groundglass opacities consistent with pneumonia. 1905: Vital signs stable on supplemental oxygen via nasal cannula. Patient CTA did show groundglass opacity as well as a segmental PE. Patient started on heparin and will be admitted to the [facility] team Dr. Clancy notified. Administered Medications Discontinued Medications Dexamethasone (Dexamethasone Sod Inj 4 Mg/Ml Vial) Confirm Administered Dose 8 mg .ROUTE .STK-MED ONE Stop: 04/26/21 18:30 Last Admin: 04/26/21 18:37 Dose: 6 mg Documented by: [id number] Sodium Chloride (Nss 1000ml) 1,000 mls @ 999 mls/hr IV .Q1H1M ONE Stop: 04/26/21 18:38 Last Admin: 04/26/21 17:44 Dose: 999 mls/hr Documented by: [id number] Dexamethasone 6 mg/ Syringe 1.5 mls @ 1 mls/min IV ONE ONE Stop: 04/26/21 18:14 Last Admin: 04/26/21 18:38 Dose: Not Given Documented by: [id number] Ioversol (Optiray 320 125ml) 120 ml IV ONCE ONE Stop: 04/26/21 18:25 Last Admin: 04/26/21 18:25 Dose: 1 ml Documented by: [id number] Ondansetron HCl (Ondansetron Inj 2 Mg/Ml 2 Ml Vial) 4 mg IV NOW STA Stop: 04/26/21 16:35 Last Admin: 04/26/21 16:46 Dose: 4 mg Documented by: [id number] Critical Care Time Critical Care Time: Yes Total Critical Care Time: 61 I have personally spent greater than 61 minutes of critical care time in the direct management of this patient. This includes bedside care, interpretation of diagnostic studies, and testing, discussion with consultants, patient, and family members, and other required patient management activities. This 61 minutes is in excess of all separately billable procedures. Medical Decision Making Laboratory Data Result diagrams: 04/26/21 16:20 04/26/21 16:20 Lab Results 04/26/21 04/26/21 04/26/21 Range/Units 16:20 16:20 16:20 WBC 7.00 (4.8-10.8) K/uL RBC 5.85 (4.7-6.1) M/uL Hgb 17.6 (14.0-18.0) g/dL Hct 51.3 (42-52) % MCV 87.7 (80-100) fL MCH 30.1 (25-34) pg MCHC 34.3 (32-36) g/dL RDW Std Deviation 42.4 (36.4-46.3) fL RDW Coeff of [place] 13.2 (11.5-14.5) % Plt Count 164 (130-400) K/uL MPV 10.5 H (7.4-10.4) fL Immature Gran % (Auto) 0.3 % Neut % (Auto) 77.9 % Lymph % (Auto) 11.1 % [place] % (Auto) 10.7 % Eos % (Auto) 0.0 % Baso % (Auto) 0.0 % Neut # (Auto) 5.45 (1.4-6.5) K/uL Lymph # (Auto) 0.78 L (1.2-3.4) K/uL [place] # (Auto) 0.75 H (0.11-0.59) K/uL Eos # (Auto) 0.00 (0-0.5) K/uL Baso # (Auto) 0.00 (0-0.2) K/uL Immature Gran # (Auto) 0.02 (0.00-0.02) K/uL PT (9.0-12.0) Seconds INR (0.9-1.1) APTT (21.0-31.0) Seconds PTT Ratio VBG pH (7.36-7.41) VBG pCO2 (38-50) mmHg VBG pO2 mmHg VBG HCO3 mmol/L VBG O2 Saturation % VBG Base Excess mEq/L Barometric Pressure mm/Hg Sodium 128 L (136-145) mmol/L Potassium 4.0 (3.5-5.1) mmol/L Chloride 94 L (98-107) mmol/L Carbon Dioxide 27 (21-32) mmol/L Anion Gap 7.0 (3-11) BUN 26 H (7-18) mg/dl Creatinine 1.61 H (0.6-1.4) mg/dl Est Cr Clr Drug Dosing 60.1 ml/min Est GFR ( Amer) 52.7 ml/min Est GFR (Non-Af Amer) 45.5 ml/min BUN/Creatinine Ratio 16.0 (10-20) Glucose 115 H (70-99) mg/dl Lactate (0.4-2.0) mmol/L Calcium 9.0 (8.5-10.1) mg/dl Magnesium 2.3 (1.8-2.4) mg/dl Total Bilirubin 1.2 H (0.2-1) mg/dl AST 74 H (15-37) U/L ALT 86 H (12-78) Alkaline Phosphatase 118 H (45-117) U/L Troponin I 0.024 (0-0.045) ng/ml Total Protein 7.7 (6.4-8.2) gm/dl Albumin 3.3 L (3.4-5.0) gm/dl Globulin 4.4 H (2.5-4.0) gm/dl Albumin/Globulin Ratio 0.7 L (0.9-2) Procalcitonin 0.27 (0-0.5) ng/ml 04/26/21 04/26/21 04/26/21 Range/Units 16:20 16:43 16:43 WBC (4.8-10.8) K/uL RBC (4.7-6.1) M/uL Hgb (14.0-18.0) g/dL Hct (42-52) % MCV (80-100) fL MCH (25-34) pg MCHC (32-36) g/dL RDW Std Deviation (36.4-46.3) fL RDW Coeff of [place] (11.5-14.5) % Plt Count (130-400) K/uL MPV (7.4-10.4) fL Immature Gran % (Auto) % Neut % (Auto) % Lymph % (Auto) % [place] % (Auto) % Eos % (Auto) % Baso % (Auto) % Neut # (Auto) (1.4-6.5) K/uL Lymph # (Auto) (1.2-3.4) K/uL [place] # (Auto) (0.11-0.59) K/uL Eos # (Auto) (0-0.5) K/uL Baso # (Auto) (0-0.2) K/uL Immature Gran # (Auto) (0.00-0.02) K/uL PT 10.5 (9.0-12.0) Seconds INR 1.0 (0.9-1.1) APTT 29.1 (21.0-31.0) Seconds PTT Ratio 1.1 VBG pH 7.41 (7.36-7.41) VBG pCO2 45 (38-50) mmHg VBG pO2 15 mmHg VBG HCO3 28 mmol/L VBG O2 Saturation < 60.0 % VBG Base Excess 2.2 mEq/L Barometric Pressure 734.2 mm/Hg Sodium (136-145) mmol/L Potassium (3.5-5.1) mmol/L Chloride (98-107) mmol/L Carbon Dioxide (21-32) mmol/L Anion Gap (3-11) BUN (7-18) mg/dl Creatinine (0.6-1.4) mg/dl Est Cr Clr Drug Dosing ml/min Est GFR ( Amer) ml/min Est GFR (Non-Af Amer) ml/min BUN/Creatinine Ratio (10-20) Glucose (70-99) mg/dl Lactate 1.7 (0.4-2.0) mmol/L Calcium (8.5-10.1) mg/dl Magnesium (1.8-2.4) mg/dl Total Bilirubin (0.2-1) mg/dl AST (15-37) U/L ALT (12-78) Alkaline Phosphatase (45-117) U/L Troponin I (0-0.045) ng/ml Total Protein (6.4-8.2) gm/dl Albumin (3.4-5.0) gm/dl Globulin (2.5-4.0) gm/dl Albumin/Globulin Ratio (0.9-2) Procalcitonin (0-0.5) ng/ml Imaging Data Radiologist's Impression: Chest CTA 04/26/21 16:16 CT ANGIOGRAPHY OF THE CHEST, PULMONARY EMBOLUS PROTOCOL CLINICAL HISTORY: Shortness of breath. Cough. Evaluate for pulmonary embolus. COMPARISON STUDY: Chest radiograph performed earlier today. TECHNIQUE: Following IV administration of 120 mL of Optiray, helical axial images of the chest were obtained utilizing the pulmonary embolus protocol. Maximal intensity projections and sagittal and coronal reformats were viewed on an independent 3D workstation. IV contrast was administered without complication. Automated exposure control was utilized for the study. A dose lowering technique was utilized adhering to the principles of ALARA. CT DOSE: 558.35 mGy.cm FINDINGS: A left subclavian biventricular pacer/AICD is in place. Note is made of a small subsegmental pulmonary embolus within the right lower lobe shown on axial image 73 of 276. No additional pulmonary emboli are identified. There is mild cardiomegaly. No pericardial effusion is present. Central airways are patent. Moderate multifocal lower lobe predominant ground glass opacities are noted. There is no cavitation. Central airways are patent. Mildly enlarged bilateral hilar lymph nodes are likely reactive. There are several partially calcified left hilar and mediastinal lymph nodes. There is no pneumothorax or pleural effusion. No suspicious lesions are identified within visualized portions of the bony thorax. Gallbladder is surgically absent. IMPRESSION: 1. Small subsegmental pulmonary embolus within the right lower lobe. No additional pulmonary emboli. 2. Moderate multifocal lower lobe predominant groundglass opacities consistent with viral pneumonia. 3. Mildly enlarged bilateral hilar lymph nodes which are likely reactive. ACT 112: Negative or not required by law. Electronically signed by: Mikey Beltran M.D. 04/26/2021 6:52 PM Chest X-Ray 04/26/21 16:16 XR chest 1V portable CLINICAL HISTORY: SEPSIS COMPARISON STUDY: Chest radiograph October 25, 2019. FINDINGS: Lung volumes are at the lower limits of normal. There is no pneumothorax or pleural effusion. Incidental note is made of multiple old right rib fractures. There is mild cardiomegaly without evidence for pulmonary edema. Left subclavian biventricular pacer/AICD is in place. Mild right lower lung opacity is present. There is also possible left basilar consolidation. IMPRESSION: Bilateral lower lung opacities which favor an infectious process. Radiographic follow-up to ensure resolution is recommended. ACT 112: Negative or not required by law. Electronically signed by: Mikey Beltran M.D. 04/26/2021 5:11 PM ECG Data Additional Comments: Paced rhythm with a rate of 77. [place] 164 QRS 150 QTc 486. No ectopy. [facility] Narrative 1615: The patient was evaluated in room C7. A complete history and physical exam was performed Cardiac monitoring: An order was placed for continuous cardiac monitoring. The monitor shows a rate of 80 with sinus rhythm 1750: Nursing informed me that the patient became hypoxic going down to 88% on room air requiring 3 L of oxygen via nasal cannula. Labs are within normal limits with the exception of a sodium 128 creatinine 1.61 elevated liver enzymes. Awaiting patient's CTA of the chest. Chest x-ray does show bilateral groundglass opacities consistent with pneumonia. 1905: Vital signs stable on supplemental oxygen via nasal cannula. Patient CTA did show groundglass opacity as well as a segmental PE. Patient started on heparin and will be admitted to the [facility] team Dr. Clancy notified. Impression & Plan Hypoxia, Pneumonia due to 2019-nCoV, Pulmonary embolism, Hyponatremia Discharge Plan Visit Data Chief Complaint: Illness Stated Complaint: FATIGUE, COVID+ ED Provider: Deshaun Calhoun Discharge Problem: Hypoxia, Pneumonia due to 2019-nCoV, Pulmonary embolism, Hyponatremia Patient Disposition: Admitted As Inpatient Forms Stand Alone Forms: My [facility] [employer] Prescriptions Prescriptions: No Action naproxen 500 mg tablet 500 mg PO BID PRN (Reason: pain) Qty: 14 RF: 0 carvedilol 25 mg tablet 25 mg PO BID RF: 0 fluoxetine 20 mg capsule 20 mg PO DAILY RF: 0 atorvastatin 40 mg tablet 40 mg PO DAILY RF: 0 lisinopril 20 mg tablet 20 mg PO DAILY RF: 0 metformin 500 mg tablet 500 mg PO QPM RF: 0 fluticasone propionate [Flonase Allergy Relief] 50 mcg/actuation [place],Suspension 1 spray INTRANASAL BID RF: 0 albuterol sulfate 90 mcg/actuation HFA aerosol inhaler 2 puff INHALATION Q6H PRN (Reason: Shortness Of Breath Or Wheezing) RF: 0 sumatriptan succinate 100 mg tablet 100 mg PO .DAILY/UD PRN (Reason: Migraine Headache) RF: 0 cyclobenzaprine 10 mg Tablet 10 mg PO TID PRN (Reason: Spasms) RF: 0 tramadol 50 mg Tablet 50 mg PO BID PRN (Reason: Pain) RF: 0 Referrals Referrals: PCP,NO [Primary Care Provider] -
--- NOTE | 2021-04-26 18:53 | CT Scan Report ---
CT ANGIOGRAPHY OF THE CHEST, PULMONARY EMBOLUS PROTOCOL CLINICAL HISTORY: Shortness of breath. Cough. Evaluate for pulmonary embolus. COMPARISON STUDY: Chest radiograph performed earlier today. TECHNIQUE: Following IV administration of 120 mL of Optiray, helical axial images of the chest were o btained utilizing the pulmonary embolus protocol. Maximal intensity projections and sagittal and cor onal reformats were viewed on an independent 3D workstation. IV contrast was administered without co mplication. Automated exposure control was utilized for the study. A dose lowering technique was ut ilized adhering to the principles of ALARA. CT DOSE: 558.35 mGy.cm FINDINGS: A left subclavian biventricular pacer/AICD is in place. Note is made of a small subsegment al pulmonary embolus within the right lower lobe shown on axial image 73 of 276. No additional pulmon alyce emboli are identified. There is mild cardiomegaly. No pericardial effusion is present. Central ai rways are patent. Moderate multifocal lower lobe predominant ground glass opacities are noted. There is no cavitation. Central airways are patent. Mildly enlarged bilateral hilar lymph nodes are likely reactive. There are several partially calcified left hilar and mediastinal lymph nodes. There is no p neumothorax or pleural effusion. No suspicious lesions are identified within visualized portions of t he bony thorax. Gallbladder is surgically absent. IMPRESSION: 1. Small subsegmental pulmonary embolus within the right lower lobe. No additional pulmonary emboli. 2. Moderate multifocal lower lobe predominant groundglass opacities consistent with viral pneumonia. 3. Mildly enlarged bilateral hilar lymph nodes which are likely reactive. ACT 112: Negative or not required by law. Electronically signed by: Mikey Beltran M.D. 04/26/2021 6:52 PM
[2021-04-26] MEDS ORDERED: Heparin IV Adult Wt-Based Standard WITH Bolus Protocol IV STA (18:59)
[2021-04-26] MEDS ORDERED: HEPARIN SOD (PORCINE) 1000 UNIT/ML IV ONE ×2 (19:14→20:15)
[2021-04-26 19:46] LABS: Thyroid Stimulating Hormone 2.76 uIu/ml (0.300-4.500)
[2021-04-26] MEDS: HEPARIN SODIUM/DEXTROSE 25,000 UNITS/500 ML BAG IV SCH (20:13)
[2021-04-26] MEDS ORDERED: LEVALBUTEROL TARTRATE 15 GM HFA.AER.AD INH PRN (20:14)
[2021-04-26] MEDS ORDERED: PROMETHAZINE HCL 12.5 MG in SODIUM CHLORIDE 0.9% 50 ML IV STA (20:16)
--- NOTE | 2021-04-26 20:17 | History & Physical Report ---
Date of Service April 26, 2021 Assessment & Plan (1) SOB (shortness of breath): Plan: Multifactorial : Severe COVID-19 pneumonia, lowest O2 sats of 90% on room air at the ER Pulmonary embolism secondary to above Hyponatremia, ARF secondary to illness Abnormal LFTs chronic systolic heart failure secondary to dilated cardiomyopathy (EF 25%, TTE 2019) status post ICD, patient on the dry side history LBBB hypertension, borderline BP upon arrival at the ER. DM2 on oral medications, well-controlled as of recent hemoglobin A1c of 6.27 June 2020 past tobacco abuse Medical telemetry Decadron and Remdesivir for severe COVID-19 pneumonia. (Patient was counseled regarding potential adverse effects from Remdesivir therapy.) Give initial dose of remdesivir for now and follow a.m. chemistries before read during subsequent doses. Pulmonary consult if with worsening oxygenation. IV Heparin for pulmonary embolism Defer discussion regarding options for home anticoagulation between patient and AM provider. Baseline UA, monitor creatinine response to IVF Appropriate to hold home DAI inhibitor for now until creatinine back to baseline careful correction of sodium, hyponatremia work-up Follow LFTs, liver ultrasound if with worsening Appropriate to decrease maintenance beta-clark dose for now given borderline BP upon arrival at the ER Basal insulin, ISS BG goal 1 10-1 40, carb count coverage, update hemoglobin A1c DVT prophylaxis. IV Heparin Full code Text document was generated using [employer] voice recognition software. It may contain grammatical or spelling errors. Kindly contact undersigned for clarification of any documentation item in question. History of Present Illness Chief Complaint: Covid, worsening shortness of breath Primary Care Provider: Dr. Houston History obtained from patient and records. Medical history significant for chronic systolic heart failure secondary to dilated cardiomyopathy (EF 25%, TTE 2019) status post ICD, history LBBB, hypertension, hyperlipidemia, DM2 on oral medications, history horseshoe kidney status post nephrectomy, past tobacco abuse. Patient not feeling well the last week. Dry cough symptoms with cough. Chest pain from coughing with shortness of breath. Feeling achy, fatigued. Nausea, vomiting, diarrhea with loss of appetite. No unusual belly pain. Patient denies fluid retention. Decreased mobility at home. Possible sick contacts at home. Patient has not received COVID-19 vaccination. Outpatient COVID-19 test done at home by patient's was positive. Patient PCP referred ER to a [facility] facility for monoclonal antibody infusion 2 days ago. Worsening symptoms at home even after antibiotic infusion. Patient brought to ER by for evaluation. Lowest O2 sats at the ER 90 on room air. IV heparin started at the ER for pulmonary embolism. No prior history of blood clots as per patient. Unknown family history due to patient having been adopted as a child. Medical History as above Surgical History : ICD, nephrectomy, vasectomy Family History : Unknown as patient adopted Personal/Social history : Past tobacco abuse, occasional EtOH intake, disabled Allergies Allergy/AdvReac Type Severity Reaction Status Date / Time No Known Allergies Allergy Unverified 04/26/21 19:17 Home Medications Medication Instructions Recorded Confirmed Type albuterol sulfate 90 mcg/actuation 2 puff INHALATION Q6H PRN 10/25/19 04/26/21 History aerosol inhaler atorvastatin 40 mg tablet 40 mg PO DAILY 10/25/19 04/26/21 History carvedilol 25 mg tablet 25 mg PO BIDM 10/25/19 04/26/21 History cyclobenzaprine 10 mg tablet 10 mg PO HS PRN 10/25/19 04/26/21 History fluoxetine 20 mg capsule 20 mg PO DAILY 10/25/19 04/26/21 History fluticasone propionate 50 1 spray INTRANASAL BID 10/25/19 04/26/21 History mcg/actuation nasal spray,suspension (Flonase Allergy Relief) lisinopril 20 mg tablet 20 mg PO DAILY 10/25/19 04/26/21 History metformin 500 mg tablet 500 mg PO BIDM 10/25/19 04/26/21 History sumatriptan succinate 100 mg tablet 100 mg PO DIRECTED PRN 10/25/19 04/26/21 History tramadol 50 mg tablet 50 mg PO BID PRN 10/25/19 04/26/21 History Past Med/Surg History Medical History Cardiac pacemaker in situ Cardiomyopathy H/O unilateral nephrectomy History of chronic back pain HTN (hypertension) No pertinent family history Social History Smoking Status: Never smoker Second Hand Exposure: No; Do You Dip or Chew Tobacco: No; Tobacco Cessation Education Requested by Patient: No Hx Alcohol Use: No Hx Substance Use: No Preferred Language: Romanian Communication Ability: Effective Pit Boss Required: No Beliefs That Will Affect Care: None Current Living Situation: Spouse Other Information That Helps Us Care for You: No Feels Safe at Home: Yes Safety Concerns: Feels Safe At This Time Assistive Devices: Glasses, Hearing Aid - Left and Hearing Aid - Right Review of Systems Review of Systems: As per HPI, all 10 systems reviewed, all other ROS negative Physical Exam Physical Exam: GENERAL: Comfortable, pleasant, obese, slightly hard of hearing, no respiratory distress SKIN: Normal color, warm HEENT: Bespectacled, [place] palpebral conjunctivae, no ptosis, dry buccal mucosa NECK : Supple, no tenderness CHEST : Decreased breath sounds, no tenderness HEART : Diminished S1-S2, no obvious murmurs ABDOMEN: Some distention, nontender EXTREMITIES : No LE swelling/tenderness, no other conspicuous deformities noted NEUROLOGIC : Coherent, no facial asymmetry, mild hearing impairment, no other gross focality Results & Data Results & Data ([facility]) Vital Signs (Past 12 Hours) Vital Signs Temp Pulse Pulse Resp BP BP Pulse Ox 04/26/21 18:30 77 21 125/70 92 04/26/21 18:00 77 22 125/83 93 04/26/21 17:49 78 22 124/77 93 04/26/21 17:30 70 19 93 04/26/21 17:00 24 126/79 90 04/26/21 16:46 93 04/26/21 16:31 77 20 127/82 92 04/26/21 16:30 22 127/82 91 04/26/21 16:05 77 22 92 04/26/21 15:36 36.6 C 83 18 98/49 L 96 04/26/21 15:32 75 20 93 Laboratory Results Laboratory Results WBC 7.00 K/uL (4.8-10.8) 04/26/21 16:20 RBC 5.85 M/uL (4.7-6.1) 04/26/21 16:20 Hgb 17.6 g/dL (14.0-18.0) 04/26/21 16:20 Hct 51.3 % (42-52) 04/26/21 16:20 MCV 87.7 fL (80-100) 04/26/21 16:20 MCH 30.1 pg (25-34) 04/26/21 16:20 MCHC 34.3 g/dL (32-36) 04/26/21 16:20 RDW Std Deviation 42.4 fL (36.4-46.3) 04/26/21 16:20 RDW Coeff of [place] 13.2 % (11.5-14.5) 04/26/21 16:20 Plt Count 164 K/uL (130-400) 04/26/21 16:20 MPV 10.5 fL (7.4-10.4) H 04/26/21 16:20 Immature Gran % (Auto) 0.3 % 04/26/21 16:20 Neut % (Auto) 77.9 % 04/26/21 16:20 Lymph % (Auto) 11.1 % 04/26/21 16:20 [place] % (Auto) 10.7 % 04/26/21 16:20 Eos % (Auto) 0.0 % 04/26/21 16:20 Baso % (Auto) 0.0 % 04/26/21 16:20 Neut # (Auto) 5.45 K/uL (1.4-6.5) 04/26/21 16:20 Lymph # (Auto) 0.78 K/uL (1.2-3.4) L 04/26/21 16:20 [place] # (Auto) 0.75 K/uL (0.11-0.59) H 04/26/21 16:20 Eos # (Auto) 0.00 K/uL (0-0.5) 04/26/21 16:20 Baso # (Auto) 0.00 K/uL (0-0.2) 04/26/21 16:20 Immature Gran # (Auto) 0.02 K/uL (0.00-0.02) 04/26/21 16:20 PT 10.5 Seconds (9.0-12.0) 04/26/21 16:20 INR 1.0 (0.9-1.1) 04/26/21 16:20 APTT 29.1 Seconds (21.0-31.0) 04/26/21 16:20 PTT Ratio 1.1 04/26/21 16:20 VBG pH 7.41 (7.36-7.41) 04/26/21 16:43 VBG pCO2 45 mmHg (38-50) 04/26/21 16:43 VBG pO2 15 mmHg 04/26/21 16:43 VBG HCO3 28 mmol/L 04/26/21 16:43 VBG O2 Saturation < 60.0 % 04/26/21 16:43 VBG Base Excess 2.2 mEq/L 04/26/21 16:43 Barometric Pressure 734.2 mm/Hg 04/26/21 16:43 Sodium 128 mmol/L (136-145) L 04/26/21 16:20 Potassium 4.0 mmol/L (3.5-5.1) 04/26/21 16:20 Chloride 94 mmol/L (98-107) L 04/26/21 16:20 Carbon Dioxide 27 mmol/L (21-32) 04/26/21 16:20 Anion Gap 7.0 (3-11) 04/26/21 16:20 BUN 26 mg/dl (7-18) H 04/26/21 16:20 Creatinine 1.61 mg/dl (0.6-1.4) H 04/26/21 16:20 Est Cr Clr Drug Dosing 60.1 ml/min 04/26/21 16:20 Est GFR ( Amer) 52.7 ml/min 04/26/21 16:20 Est GFR (Non-Af Amer) 45.5 ml/min 04/26/21 16:20 BUN/Creatinine Ratio 16.0 (10-20) 04/26/21 16:20 Glucose 115 mg/dl (70-99) H 04/26/21 16:20 Osmolality 278 mOsm/kg (280-300) L 04/26/21 16:45 Lactate 1.7 mmol/L (0.4-2.0) 04/26/21 16:43 Calcium 9.0 mg/dl (8.5-10.1) 04/26/21 16:20 Magnesium 2.3 mg/dl (1.8-2.4) 04/26/21 16:20 Total Bilirubin 1.2 mg/dl (0.2-1) H 04/26/21 16:20 AST 74 U/L (15-37) H 04/26/21 16:20 ALT 86 (12-78) H 04/26/21 16:20 Alkaline Phosphatase 118 U/L (45-117) H 04/26/21 16:20 Troponin I 0.024 ng/ml (0-0.045) 04/26/21 16:20 Total Protein 7.7 gm/dl (6.4-8.2) 04/26/21 16:20 Albumin 3.3 gm/dl (3.4-5.0) L 04/26/21 16:20 Globulin 4.4 gm/dl (2.5-4.0) H 04/26/21 16:20 Albumin/Globulin Ratio 0.7 (0.9-2) L 04/26/21 16:20 Procalcitonin 0.27 ng/ml (0-0.5) 04/26/21 16:20 TSH 2.760 uIu/ml (0.300-4.500) 04/26/21 16:20 Impressions Chest CTA 04/26/21 16:16 CT ANGIOGRAPHY OF THE CHEST, PULMONARY EMBOLUS PROTOCOL CLINICAL HISTORY: Shortness of breath. Cough. Evaluate for pulmonary embolus. COMPARISON STUDY: Chest radiograph performed earlier today. TECHNIQUE: Following IV administration of 120 mL of Optiray, helical axial images of the chest were obtained utilizing the pulmonary embolus protocol. Maximal intensity projections and sagittal and coronal reformats were viewed on an independent 3D workstation. IV contrast was administered without complication. Automated exposure control was utilized for the study. A dose lowering technique was utilized adhering to the principles of ALARA. CT DOSE: 558.35 mGy.cm FINDINGS: A left subclavian biventricular pacer/AICD is in place. Note is made of a small subsegmental pulmonary embolus within the right lower lobe shown on axial image 73 of 276. No additional pulmonary emboli are identified. There is mild cardiomegaly. No pericardial effusion is present. Central airways are patent. Moderate multifocal lower lobe predominant ground glass opacities are noted. There is no cavitation. Central airways are patent. Mildly enlarged bilateral hilar lymph nodes are likely reactive. There are several partially calcified left hilar and mediastinal lymph nodes. There is no pneumothorax or pleural effusion. No suspicious lesions are identified within visualized portions of the bony thorax. Gallbladder is surgically absent. IMPRESSION: 1. Small subsegmental pulmonary embolus within the right lower lobe. No additional pulmonary emboli. 2. Moderate multifocal lower lobe predominant groundglass opacities consistent with viral pneumonia. 3. Mildly enlarged bilateral hilar lymph nodes which are likely reactive. ACT 112: Negative or not required by law. Electronically signed by: Mikey Beltran M.D. 04/26/2021 6:52 PM Chest X-Ray 04/26/21 16:16 XR chest 1V portable CLINICAL HISTORY: SEPSIS COMPARISON STUDY: Chest radiograph October 25, 2019. FINDINGS: Lung volumes are at the lower limits of normal. There is no pneumothorax or pleural effusion. Incidental note is made of multiple old right rib fractures. There is mild cardiomegaly without evidence for pulmonary edema. Left subclavian biventricular pacer/AICD is in place. Mild right lower lung opacity is present. There is also possible left basilar consolidation. IMPRESSION: Bilateral lower lung opacities which favor an infectious process. Radiographic follow-up to ensure resolution is recommended. ACT 112: Negative or not required by law. Electronically signed by: Mikey Beltran M.D. 04/26/2021 5:11 PM Diagnostic Findings EKG as per my interpretation rate 75, paced rhythm
[2021-04-26] MEDS ORDERED: ACETAMINOPHEN 325 MG TAB PO PRN (20:29)
[2021-04-26 20:58] LABS: Influenza A virus by PCR Negative (Neg); Influenza B virus by PCR Negative (Neg); RSV by PCR Negative (Neg)
[2021-04-26] MEDS ORDERED: SODIUM CHLORIDE 0.9% 10ML FLUSH IV SCH (21:00)
[2021-04-26] MEDS ORDERED: REMDESIVIR 200 MG in SODIUM CHLORIDE 0.9% 210 ML IV ONE (21:00)
[2021-04-26] MEDS ORDERED: carvediloL 6.25 MG TAB PO ONE (21:00)
[2021-04-27] MEDS ORDERED: GLUCOSE 10 TABS/TUBE PO PRN (00:56)
[2021-04-27] MEDS ORDERED: DEXTROSE 50% 50 ML SYRINGE IV PRN (00:56)
[2021-04-27] MEDS ORDERED: GLUCAGON FOR INJ 1 MG VIAL SQ PRN (00:56)
[2021-04-27] MEDS ORDERED: PROMETHAZINE HCL 12.5 MG in SODIUM CHLORIDE 0.9% 50 ML IV PRN (00:56)
[2021-04-27] MEDS ORDERED: GLUCOSE 40% GEL 15 GM TUBE PO PRN (00:56)
[2021-04-27] MEDS ORDERED: CARBOHYDRATES FOR HYPOGLYCEMIA PO PRN (00:56)
[2021-04-27] MEDS: INSULIN ASPART 100 UNITS/ML 3 ML PEN SC SCH ×5 (02:03→22:24)
[2021-04-27] MEDS: INSULIN GLARGINE SOLOSTAR 100 UNITS/ML 3 ML PEN SC SCH ×2 (02:07→21:09)
[2021-04-27] MEDS: guaiFENesin 600 MG TABCR PO SCH ×3 (02:11→20:50)
[2021-04-27] MEDS: FLUTICASONE PROPIONATE NA SPR 16 GM BTL SCH ×3 (02:11→21:02)
[2021-04-27 02:36] LABS: Hematocrit (blood only) 44.7 % (42-52); Hemoglobin 15.3 g/dL (14.0-18.0); Mean Corpuscular Hemoglobin 29.8 pg (25-34); Mean Corpuscular Hgb Conc 34.2 g/dL (32-36); Mean Corpuscular Volume 87.1 fL (80-100); Mean Platelet Volume 10.1 fL (7.4-10.4); Platelet Count 168 K/uL (130-400); RDW Coefficient of Variation 13.3 % (11.5-14.5); RDW Standard Deviation 42.7 fL (36.4-46.3); Red Blood Count 5.13 M/uL (4.7-6.1); White Blood Count 5.74 K/uL (4.8-10.8)
[2021-04-27 02:55] LABS: Albumin Level 2.6 gm/dl (3.4-5.0); BUN Creatinine Ratio 21.4 (10-20); Calcium 8.4 mg/dl (8.5-10.1); Creatinine Clr Calc Pharmacy 81.4 ml/min; Est GFR (African American) 74.4 ml/min; Est GFR (Non-African American) 64.2 ml/min; Potassium 4.3 mmol/L (3.5-5.1)
[2021-04-27 02:57] LABS: BUN Creatinine Ratio 20.3 (10-20); Calcium 8.4 mg/dl (8.5-10.1); Creatinine Clr Calc Pharmacy 79.4 ml/min; Est GFR (African American) 72.3 ml/min; Est GFR (Non-African American) 62.4 ml/min; Potassium 4.2 mmol/L (3.5-5.1)
[2021-04-27 03:02] LABS: Albumin Globulin Ratio 0.7 (0.9-2); Bilirubin,Total 0.8 mg/dl (0.2-1); C Reactive Protein 5.25 mg/dl (0-0.29); Globulin 3.7 gm/dl (2.5-4.0); Total Protein 6.3 gm/dl (6.4-8.2)
[2021-04-27 03:05] LABS: Basophils # (auto) 0.01 K/uL (0-0.2); Basophils % (auto) 0.2 %; Immature Granulocytes # (auto) 0.01 K/uL (0.00-0.02); Immature Granulocytes % (auto) 0.2 %; Lymphocytes # (auto) 0.42 K/uL (1.2-3.4); Lymphocytes % (auto) 7.3 %; Monocytes # (auto) 0.35 K/uL (0.11-0.59); Monocytes % (auto) 6.1 %; Neutrophils # (auto) 4.95 K/uL (1.4-6.5); Neutrophils % (auto) 86.2 %; RBC Morphology Unremarkable
[2021-04-27] MEDS ORDERED: SODIUM CHLORIDE 0.9% 1000ML 1,000 ML IV ONE (03:17)
[2021-04-27 04:42] LABS: INR 1.2 (0.9-1.1); Prothrombin Time 11.6 Seconds (9.0-12.0)
[2021-04-27 04:47] LABS: Partial Thromboplastin Ratio > 5.3
[2021-04-27 04:48] LABS: Partial Thromboplastin Time > 139.0 Seconds (21.0-31.0)
[2021-04-27 07:50] LABS: Partial Thromboplastin Ratio 4.9
[2021-04-27 07:54] LABS: Partial Thromboplastin Time 129.4 Seconds (21.0-31.0)
[2021-04-27] MEDS: dexAMETHasone 6 MG in SYRINGE 0 ML IV SCH (08:29)
[2021-04-27 08:44] LABS: Partial Thromboplastin Ratio 3.2
[2021-04-27 08:58] LABS: Partial Thromboplastin Time 83.9 Seconds (21.0-31.0)
[2021-04-27] MEDS ORDERED: lisinopril 20 MG TAB PO SCH ×2 (09:00)
--- NOTE | 2021-04-27 12:57 | Electrocardiogram Report ---
Test Reason : Blood Pressure : / mmHG Vent. Rate : 077 BPM Atrial Rate : 077 BPM P-R Int : 164 ms QRS Dur : 150 ms QT Int : 430 ms P-R-T Axes : 022 -67 086 degrees QTc Int : 486 ms Atrial-sensed ventricular-paced rhythm Abnormal ECG When compared with ECG of 25-OCT-2019 16:27, No significant change was found Confirmed by Eric Veronica ([id number]) on 04/27/2021 12:57:08 PM Referred By: REFERRED SELF Confirmed By:Eric Veronica
[2021-04-27 16:10] LABS: Partial Thromboplastin Ratio 5.1
--- NOTE | 2021-04-27 16:30 | Hospitalist Progress Note ---
Date of Service April 27, 2021 Assessment & Plan (1) Pneumonia due to 2019-nCoV: Plan: declines to prone declines vaccination Cont with decadron and remdesivir. Cont oxygen supplementaton. (2) Pulmonary embolism: Plan: continue heparin with transition to eliquis tomorrow. Pt denies any pain or pleurisy. Cont oxygen supplementation. (3) Hyponatremia: Plan: Possibly related to poor p.o. intake or dehydration, resolving with fluids. Stop fluids now and continue to trend. (4) HTN (hypertension): Plan: Lisinopril held on admission secondary to LIOR. Continue to hold now. (5) LIOR (acute kidney injury): Plan: Creatinine improving but not quite to baseline. Continue to encourage oral hydration and hold lisinopril. BMP in a.m. (6) DMII (diabetes mellitus, type 2): Plan: Chronic, controlled, continue basal bolus insulin. Euglycemic. (7) Elevated LFTs: Plan: Resolving, Patient is on atorvastatin at home, has COVID-19 virus. Plan to repeat LFTs as outpatient to ensure normalization. (8) DVT prophylaxis: Plan: Heparin drip Full code Disposition-to home when medically stable. Lubna Graff DO [facility] Hospitalist Admission and Anticipated Discharge Date Admission Date: April 26, 2021 Subjective 60 yo M with COVID pneumonia presents with SOB, also found to have a PE. On heparin still slightly SOB but reports feeling much better than yesterday eating well and appetite ok no nausea, vomiting no diarrhea feels very fatigued denies headache still coughing but improved some chest discomfort from coughing. Review of Systems Review of Systems: All systems were reviewed and negative except as indicated in subjective above. Physical Exam Physical Exam: CONSTITUTIONAL: WNWD, vitals as above, generally well- appearing EYES: normal conjunctivae, no scleral icterus ENT: external ear and nose normal, MMM NECK: trachea midline RESPIRATORY: clear to auscultation bilaterally, no crackles, rales or wheezes, normal respiratory effort CARDIOVASCULAR: regular rate and rhythm, S1 and 2 heard without murmurs, gallops or rubs, no JVD, no peripheral edema CHEST: inspection of chest was normal GASTROINTESTINAL: normal bowel sounds, soft, nontender, ND, no guarding MUSCULOSKELETAL: strength 5/5 throughout, head is normocephalic and atraumatic, neck supple, normal palpation of chest wall without tenderness SKIN: warm and dry NEUROLOGIC: CN 2-12 grossly intact, normal cognition, normal speech, no tremor, no gross focal deficits. PSYCHIATRIC: alert cooperative and oriented to person, place and time. Results & Data Results & Data ([facility]) Vital Signs (Past 12 Hours) Vital Signs Temp Pulse Resp BP Pulse Ox 04/27/21 12:00 36.8 C 64 18 119/74 93 04/27/21 08:00 37 C 55 L 18 114/77 93 04/27/21 06:00 62 20 95/71 L 92 Laboratory Results Short CBC 04/26/21 04/27/21 Range/Units 16:20 02:07 WBC 7.00 5.74 (4.8-10.8) K/uL Hgb 17.6 15.3 (14.0-18.0) g/dL Hct 51.3 44.7 (42-52) % Plt Count 164 168 (130-400) K/uL BMP 04/26/21 04/27/21 04/27/21 16:20 02:07 02:07 Sodium 128 L 128 L 128 L Potassium 4.0 4.2 4.3 Chloride 94 L 98 99 Carbon Dioxide 27 21 24 BUN 26 H 25 H 26 H Creatinine 1.61 H 1.24 D 1.21 Glucose 115 H 165 H 163 H Calcium 9.0 8.4 L 8.4 L 04/27/21 04/27/21 07:07 15:44 Sodium 131 L 132 L Potassium Chloride Carbon Dioxide BUN Creatinine Glucose Calcium Cardiac Enzymes 04/26/21 Range/Units 16:20 Troponin I 0.024 (0-0.045) ng/ml Liver Function 04/26/21 04/27/21 Range/Units 16:20 02:07 Total Bilirubin 1.2 H 0.8 (0.2-1) mg/dl AST 74 H 57 H (15-37) U/L ALT 86 H 74 (12-78) Alkaline Phosphatase 118 H 98 (45-117) U/L Albumin 3.3 L 2.6 L (3.4-5.0) gm/dl Medications Administered Current Inpatient Medications Acetaminophen (Acetaminophen 325 Mg Tab) 325 mg PO Q6H PRN PRN Reason: Mild Pain Stop: 05/26/21 20:28 Dextrose (Dextrose 50% 50 Ml Syringe) 25 - 50 ml IV UD PRN; Protocol PRN Reason: Hypoglycemia Protocol Stop: 05/27/21 00:55 Fluticasone Propionate (Fluticasone Propionate Na Spr 16 Gm Btl) 1 sprays NA BID [facility] Stop: 05/27/21 01:29 Last Admin: 04/27/21 08:29 Dose: 1 sprays Documented by: Glucagon (Glucagon For Inj 1 Mg Vial) 1 mg SQ UD PRN; Protocol PRN Reason: Hypoglycemia Protocol Stop: 05/27/21 00:55 Glucose (Glucose 10 Tabs/Tube) 4 - 8 tabs PO UD PRN; Protocol PRN Reason: Hypoglycemia Protocol Stop: 05/27/21 00:55 Glucose (Glucose 40% Gel 15 Gm Tube) 15 - 30 gm PO UD PRN; Protocol PRN Reason: Hypoglycemia Protocol Stop: 05/27/21 00:55 Guaifenesin (Guaifenesin 600 Mg Tabcr) 600 mg PO Q12 [facility] Stop: 05/27/21 01:29 Last Admin: 04/27/21 08:30 Dose: 600 mg Documented by: Heparin Sodium/Dextrose (Heparin Sodium/Dextrose) 25,000 units in 500 mls @ 23 mls/hr IV .[id number] [facility]; Protocol Stop: 05/26/21 19:14 Last Titration: 04/27/21 09:00 Dose: 1,150 units/hr, 23 mls/hr Documented by: Promethazine HCl 12.5 mg/ (Sodium Chloride) 50.5 mls @ 202 mls/hr IV Q6H PRN PRN Reason: Nausea And Vomiting Stop: 05/27/21 00:55 Dexamethasone 6 mg/ Syringe 1.5 mls @ 1 mls/min IV DAILY [facility] Stop: 05/27/21 08:59 Last Admin: 04/27/21 08:29 Dose: 1 mls/min Documented by: Remdesivir 100 mg/ Sodium (Chloride) 250 mls @ 250 mls/hr IV Q24H [facility]; Protocol Stop: 04/30/21 20:59 Insulin Aspart (Insulin Aspart 100 Units/Ml 3 Ml Pen) 0 units SC ACHS [facility] Stop: 05/27/21 01:29 Last Admin: 04/27/21 12:41 Dose: 6 units Documented by: Insulin Glargine (Insulin Glargine Solostar 100 Units/Ml 3 Ml Pen) 5 units SC HS BRAD Stop: 05/27/21 01:29 Last Admin: 04/27/21 02:07 Dose: 5 units Documented by: Levalbuterol HCl (Levalbuterol Tartrate 15 Gm Hfa.Aer.Ad) 2 puffs INH Q4H PRN; Protocol PRN Reason: sob/wheeze Stop: 05/26/21 20:13 Miscellaneous (Carbohydrates For Hypoglycemia ) 15 - 30 gm PO UD PRN PRN Reason: Hypoglycemia Protocol Stop: 05/27/21 00:55 Sodium Chloride (Sodium Chloride 0.9% 10ml Flush) 30 ml IV Q24H BRAD Stop: 04/30/21 20:01 (1) Pulmonary embolism Pulmonary embolism type: single subsegmental (without acute cor pulmonale) Qualified Code(s): I26.93 - Single subsegmental pulmonary embolism without acute cor pulmonale (2) HTN (hypertension) Hypertension type: unspecified Qualified Code(s): I10 - Essential (primary) hypertension
[2021-04-27] MEDS ORDERED: guaiFENesin/CODEINE 100MG/10MG 5ML UDC PO STA (16:33)
[2021-04-27 16:46] LABS: Partial Thromboplastin Time 135.1 Seconds (21.0-31.0)
[2021-04-27] MEDS: HEPARIN SODIUM/DEXTROSE 25,000 UNITS/500 ML BAG IV SCH (19:30)
[2021-04-27] MEDS: REMDESIVIR 100 MG in SODIUM CHLORIDE 0.9% 230 ML IV SCH (20:50)
[2021-04-27 21:18] LABS: Appearance Urine Clear (Clear); Bacteria Urine Automated Negative (Negative); Bilirubin Urine Negative (Negative); Blood Urine Trace (Negative); Color Urine Dark Yellow; Glucose Urine UA Negative (Negative); Ketones Urine Negative (Negative); Leukocyte Esterase Urine Negative (Negative); Nitrite Urine Negative (Negative); Protein Urine 3+ (Negative); RBC Urine Automated 0-4 /hpf (0-4); Specific Gravity Urine 1.027 (1.000-1.030); Urobilinogen Urine Negative (Negative); pH Urine 5.5 (4.5-7.5)
[2021-04-27] MEDS: SODIUM CHLORIDE 0.9% 10ML FLUSH IV SCH (21:47)
[2021-04-27 22:26] LABS: Partial Thromboplastin Ratio > 5.3; Partial Thromboplastin Time > 139.0 Seconds (21.0-31.0)
[2021-04-28 01:18] LABS: Partial Thromboplastin Ratio 1.3; Partial Thromboplastin Time 34.2 Seconds (21.0-31.0)
[2021-04-28] MEDS: HEPARIN SODIUM/DEXTROSE 25,000 UNITS/500 ML BAG IV SCH ×2 (01:35→19:51)
[2021-04-28 07:33] LABS: Hemoglobin 14.5 g/dL (14.0-18.0); Mean Corpuscular Hemoglobin 29.8 pg (25-34); Mean Corpuscular Hgb Conc 33.7 g/dL (32-36); Mean Corpuscular Volume 88.5 fL (80-100); Mean Platelet Volume 10.7 fL (7.4-10.4); Platelet Count 200 K/uL (130-400); RDW Coefficient of Variation 13.3 % (11.5-14.5); RDW Standard Deviation 43.3 fL (36.4-46.3); Red Blood Count 4.86 M/uL (4.7-6.1); White Blood Count 7.17 K/uL (4.8-10.8)
[2021-04-28 07:42] LABS: Partial Thromboplastin Ratio 1.3; Partial Thromboplastin Time 35.1 Seconds (21.0-31.0)
[2021-04-28 08:05] LABS: C Reactive Protein 2.68 mg/dl (0-0.29); Calcium 8.2 mg/dl (8.5-10.1); Creatinine Clr Calc Pharmacy 96.5 ml/min; Est GFR (African American) 91.5 ml/min; Potassium 4.1 mmol/L (3.5-5.1)
[2021-04-28] MEDS: INSULIN ASPART 100 UNITS/ML 3 ML PEN SC SCH ×4 (08:20→21:03)
[2021-04-28] MEDS: FLUTICASONE PROPIONATE NA SPR 16 GM BTL SCH ×2 (10:20→20:46)
[2021-04-28] MEDS: guaiFENesin 600 MG TABCR PO SCH ×2 (10:20→20:46)
[2021-04-28] MEDS: dexAMETHasone 6 MG in SYRINGE 0 ML IV SCH (10:24)
[2021-04-28] MEDS ORDERED: Nursing to Pharmacy Communication SCH (12:00)
[2021-04-28] MEDS ORDERED: HEPARIN IV BOLUS 4,000 UNITS in SYRINGE 0 ML IV ONE (12:30)
[2021-04-28 18:18] LABS: SARS CoV2 RNA(COVID-19) InHosp POSITIVE (Negative)
[2021-04-28 19:14] LABS: Partial Thromboplastin Ratio 1.6; Partial Thromboplastin Time 41.8 Seconds (21.0-31.0)
[2021-04-28] MEDS: APIXABAN 5 MG TABLET PO SCH (20:46)
[2021-04-28] MEDS: MELATONIN 3 MG TAB PO PRN (21:15)
[2021-04-28] MEDS: SODIUM CHLORIDE 0.9% 10ML FLUSH IV SCH (21:47)
[2021-04-28] MEDS: REMDESIVIR 100 MG in SODIUM CHLORIDE 0.9% 230 ML IV SCH (21:47)
[2021-04-29 05:44] LABS: Hematocrit (blood only) 42.3 % (42-52); Hemoglobin 13.9 g/dL (14.0-18.0); Mean Corpuscular Hemoglobin 29.5 pg (25-34); Mean Corpuscular Hgb Conc 32.9 g/dL (32-36); Mean Corpuscular Volume 89.8 fL (80-100); Mean Platelet Volume 10.4 fL (7.4-10.4); Platelet Count 223 K/uL (130-400); RDW Coefficient of Variation 13.3 % (11.5-14.5); RDW Standard Deviation 44.4 fL (36.4-46.3); Red Blood Count 4.71 M/uL (4.7-6.1); White Blood Count 7.99 K/uL (4.8-10.8)
[2021-04-29 06:20] LABS: Calcium 8.4 mg/dl (8.5-10.1); Creatinine Clr Calc Pharmacy 84.9 ml/min; Est GFR (African American) 84.5 ml/min; Est GFR (Non-African American) 72.9 ml/min; Magnesium 2.2 mg/dl (1.8-2.4); Potassium 4.7 mmol/L (3.5-5.1)
[2021-04-29 06:22] LABS: C Reactive Protein 1.43 mg/dl (0-0.29); Phosphorus 3.7 mg/dl (2.5-4.9)
[2021-04-29] MEDS: guaiFENesin 600 MG TABCR PO SCH ×2 (08:10→20:08)
[2021-04-29] MEDS: APIXABAN 5 MG TABLET PO SCH ×2 (08:10→20:08)
[2021-04-29] MEDS: FLUTICASONE PROPIONATE NA SPR 16 GM BTL SCH ×2 (09:00→20:08)
[2021-04-29] MEDS: INSULIN ASPART 100 UNITS/ML 3 ML PEN SC SCH ×4 (09:05→20:18)
[2021-04-29] MEDS: dexAMETHasone 6 MG in SYRINGE 0 ML IV SCH (09:20)
[2021-04-29] MEDS ORDERED: Nursing to Pharmacy Communication SCH (12:45)
[2021-04-29] MEDS: HEPARIN SODIUM/DEXTROSE 25,000 UNITS/500 ML BAG IV SCH (13:30)
[2021-04-29] MEDS: REMDESIVIR 100 MG in SODIUM CHLORIDE 0.9% 230 ML IV SCH (20:07)
[2021-04-29] MEDS: MELATONIN 3 MG TAB PO PRN (20:08)
[2021-04-29] MEDS: SODIUM CHLORIDE 0.9% 10ML FLUSH IV SCH (21:08)
--- NOTE | 2021-04-29 23:46 | Hospitalist Progress Note ---
Date of Service April 29, 2021 Assessment & Plan (1) Pneumonia due to 2019-nCoV: Plan: declines to prone declines vaccination Cont with decadron and remdesivir. Cont oxygen supplementaton. (2) Pulmonary embolism: Plan: Cont apixaban. Pt denies any pain or pleurisy. Cont oxygen supplementation. (3) Hyponatremia: Plan: Possibly related to poor p.o. intake or dehydration, resolving with fluids. (4) HTN (hypertension): Plan: Lisinopril held on admission secondary to LIOR. Continue to hold now. (5) LIOR (acute kidney injury): Plan: Creatinine improving but not quite to baseline. Continue to encourage oral hydration and hold lisinopril. BMP in a.m. (6) DMII (diabetes mellitus, type 2): Plan: Chronic, controlled, continue basal bolus insulin. Euglycemic. (7) Elevated LFTs: Plan: Resolving, Patient is on atorvastatin at home, has COVID-19 virus. Plan to repeat LFTs as outpatient to ensure normalization. (8) DVT prophylaxis: Plan: apixaban Full code Disposition-to home when medically stable. Lubna Graff DO [facility] Hospitalist Admission and Anticipated Discharge Date Admission Date: April 26, 2021 Subjective 60 yo M with COVID pneumonia presents with SOB, also found to have a PE. Transitioned to apixaban feels much better and not SOB eating well and appetite ok no nausea, vomiting no diarrhea fatigue has improved. denies headache Review of Systems Review of Systems: All systems were reviewed and negative except as indicated in subjective above. Physical Exam Physical Exam: CONSTITUTIONAL: WNWD, vitals as above, generally well- appearing EYES: normal conjunctivae, no scleral icterus ENT: external ear and nose normal, MMM NECK: trachea midline RESPIRATORY: clear to auscultation bilaterally, no crackles, rales or wheezes, normal respiratory effort CARDIOVASCULAR: regular rate and rhythm, S1 and 2 heard without murmurs, gallops or rubs, no JVD, no peripheral edema CHEST: inspection of chest was normal GASTROINTESTINAL: normal bowel sounds, soft, nontender, ND, no guarding MUSCULOSKELETAL: strength 5/5 throughout, head is normocephalic and atraumatic, neck supple, normal palpation of chest wall without tenderness SKIN: warm and dry NEUROLOGIC: CN 2-12 grossly intact, normal cognition, normal speech, no tremor, no gross focal deficits. PSYCHIATRIC: alert cooperative and oriented to person, place and time. Results & Data Results & Data ([facility]) Vital Signs (Past 12 Hours) Vital Signs Temp Pulse Resp BP BP Pulse Ox 04/29/21 22:38 36.6 C 52 L 16 131/77 95 04/29/21 19:58 36.3 C L 54 L 20 128/83 94 04/29/21 15:11 36.5 C 53 L 129/81 93 04/29/21 13:16 36.6 C 57 L 126/76 94 Laboratory Results Short CBC 04/29/21 Range/Units 05:25 WBC 7.99 (4.8-10.8) K/uL Hgb 13.9 L (14.0-18.0) g/dL Hct 42.3 (42-52) % Plt Count 223 (130-400) K/uL BMP 04/29/21 05:25 Sodium 135 L Potassium 4.7 Chloride 103 Carbon Dioxide 28 BUN 26 H Creatinine 1.09 Glucose 146 H Calcium 8.4 L Liver Function 04/29/21 Range/Units 05:25 AST 43 H (15-37) U/L ALT 89 H (12-78) Medications Administered Current Inpatient Medications Acetaminophen (Acetaminophen 325 Mg Tab) 325 mg PO Q6H PRN PRN Reason: Mild Pain Stop: 05/26/21 20:28 Apixaban (Apixaban 5 Mg Tablet) 10 mg PO BID [facility] Stop: 05/05/21 09:01 Last Admin: 04/29/21 20:08 Dose: 10 mg Documented by: Dextrose (Dextrose 50% 50 Ml Syringe) 25 - 50 ml IV UD PRN; Protocol PRN Reason: Hypoglycemia Protocol Stop: 05/27/21 00:55 Fluticasone Propionate (Fluticasone Propionate Na Spr 16 Gm Btl) 1 sprays NA BID [facility] Stop: 05/27/21 01:29 Last Admin: 04/29/21 20:08 Dose: 1 sprays Documented by: Glucagon (Glucagon For Inj 1 Mg Vial) 1 mg SQ UD PRN; Protocol PRN Reason: Hypoglycemia Protocol Stop: 05/27/21 00:55 Glucose (Glucose 10 Tabs/Tube) 4 - 8 tabs PO UD PRN; Protocol PRN Reason: Hypoglycemia Protocol Stop: 05/27/21 00:55 Glucose (Glucose 40% Gel 15 Gm Tube) 15 - 30 gm PO UD PRN; Protocol PRN Reason: Hypoglycemia Protocol Stop: 05/27/21 00:55 Guaifenesin (Guaifenesin 600 Mg Tabcr) 600 mg PO Q12 BRAD Stop: 05/27/21 01:29 Last Admin: 04/29/21 20:08 Dose: 600 mg Documented by: Guaifenesin/Codeine Phosphate (Guaifenesin/Codeine 200mg/20mg 10ml Udc) 10 ml PO Q6H PRN PRN Reason: Cough Stop: 05/27/21 16:32 Promethazine HCl 12.5 mg/ (Sodium Chloride) 50.5 mls @ 202 mls/hr IV Q6H PRN PRN Reason: Nausea And Vomiting Stop: 05/27/21 00:55 Dexamethasone 6 mg/ Syringe 1.5 mls @ 1 mls/min IV DAILY [facility] Stop: 05/27/21 08:59 Last Admin: 04/29/21 09:20 Dose: 1 mls/min Documented by: Remdesivir 100 mg/ Sodium (Chloride) 250 mls @ 250 mls/hr IV Q24H [facility]; Protocol Stop: 04/30/21 20:59 Last Infusion: 04/29/21 21:08 Dose: Infused Documented by: Insulin Aspart (Insulin Aspart 100 Units/Ml 3 Ml Pen) 0 units SC ACHS [facility] Stop: 05/27/21 01:29 Last Admin: 04/29/21 20:18 Dose: 1 units Documented by: Levalbuterol HCl (Levalbuterol Tartrate 15 Gm Hfa.Aer.Ad) 2 puffs INH Q4H PRN; Protocol PRN Reason: sob/wheeze Stop: 05/26/21 20:13 Melatonin (Melatonin 3 Mg Tab) 3 mg PO HS PRN PRN Reason: Sleep Stop: 05/28/21 20:02 Last Admin: 04/29/21 20:08 Dose: 3 mg Documented by: Miscellaneous (Carbohydrates For Hypoglycemia ) 15 - 30 gm PO UD PRN PRN Reason: Hypoglycemia Protocol Stop: 05/27/21 00:55 Sodium Chloride (Sodium Chloride 0.9% 10ml Flush) 30 ml IV Q24H BRAD Stop: 04/30/21 20:01 Last Admin: 04/29/21 21:08 Dose: 30 ml Documented by: (1) Pulmonary embolism Pulmonary embolism type: single subsegmental (without acute cor pulmonale) Qualified Code(s): I26.93 - Single subsegmental pulmonary embolism without acute cor pulmonale (2) HTN (hypertension) Hypertension type: unspecified Qualified Code(s): I10 - Essential (primary) hypertension
[2021-04-30 06:58] LABS: Est GFR (Non-African American) 87.2 ml/min
[2021-04-30] MEDS: guaiFENesin 600 MG TABCR PO SCH (08:42)
[2021-04-30] MEDS: APIXABAN 5 MG TABLET PO SCH (08:42)
[2021-04-30] MEDS: FLUTICASONE PROPIONATE NA SPR 16 GM BTL SCH (08:43)
[2021-04-30] MEDS: dexAMETHasone 6 MG in SYRINGE 0 ML IV SCH (08:44)
--- NOTE | 2021-04-30 10:43 | Hospitalist Progress Note ---
Date of Service April 28, 2021 Assessment & Plan (1) Pneumonia due to 2019-nCoV: Plan: declines to prone declines vaccination Cont with decadron and remdesivir. Cont oxygen supplementaton. (2) Pulmonary embolism: Plan: Pt denies any pain or pleurisy. Cont oxygen supplementation. Transitioning him from heparin drip to apixaban (3) Hyponatremia: Plan: Possibly related to poor p.o. intake or dehydration, resolving with fluids. (4) HTN (hypertension): Plan: Lisinopril held on admission secondary to LIOR. Continue to hold now. (5) LIOR (acute kidney injury): Plan: Creatinine improving but not quite to baseline. Continue to encourage oral hydration and hold lisinopril. BMP in a.m. (6) DMII (diabetes mellitus, type 2): Plan: Chronic, controlled, continue basal bolus insulin. Euglycemic. (7) Elevated LFTs: Plan: Resolving, Patient is on atorvastatin at home, has COVID-19 virus. Plan to repeat LFTs as outpatient to ensure normalization. (8) DVT prophylaxis: Plan: apixaban Full code Disposition-to home when medically stable. Lubna Graff DO [place] Hospitalist Admission and Anticipated Discharge Date Admission Date: April 26, 2021 Subjective 60 yo M with COVID pneumonia presents with SOB, also found to have a PE. feels much better and not SOB Still weak and not in a oscar to return home appetite improving reports that he is sleeping alot which helped him Review of Systems Review of Systems: All systems were reviewed and negative except as indicated in subjective above. Physical Exam Physical Exam: CONSTITUTIONAL: WNWD, vitals as above, generally well- appearing, NAD EYES: normal conjunctivae, no scleral icterus ENT: external ear and nose normal, MMM NECK: trachea midline RESPIRATORY: clear to auscultation bilaterally, no crackles, rales or wheezes, normal respiratory effort CARDIOVASCULAR: regular rate and rhythm, S1 and 2 heard without murmurs, gallops or rubs, no JVD, no peripheral edema CHEST: inspection of chest was normal GASTROINTESTINAL: normal bowel sounds, soft, nontender, ND, no guarding MUSCULOSKELETAL: strength 5/5 throughout, head is normocephalic and atraumatic, neck supple, normal palpation of chest wall without tenderness SKIN: warm and dry NEUROLOGIC: CN 2-12 grossly intact, normal cognition, normal speech, no tremor, no gross focal deficits. PSYCHIATRIC: alert cooperative and oriented to person, place and time. Results & Data Results & Data ([facility]) Vital Signs (Past 12 Hours) Vital Signs Temp Pulse Pulse Pulse Pulse Pulse Resp 04/30/21 10:00 70 79 61 63 04/30/21 08:17 36.4 C L 59 L 18 04/30/21 04:34 37 C 54 L 18 Resp Resp Resp Resp BP Pulse Ox Pulse Ox 04/30/21 10:00 20 20 18 20 94 04/30/21 08:17 127/76 92 04/30/21 04:34 126/74 92 Pulse Ox Pulse Ox Pulse Ox 04/30/21 10:00 87 L 91 93 04/30/21 08:17 04/30/21 04:34 (1) Pulmonary embolism Pulmonary embolism type: single subsegmental (without acute cor pulmonale) Qualified Code(s): I26.93 - Single subsegmental pulmonary embolism without acute cor pulmonale (2) HTN (hypertension) Hypertension type: unspecified Qualified Code(s): I10 - Essential (primary) hypertension
[2021-04-30] MEDS: INSULIN ASPART 100 UNITS/ML 3 ML PEN SC SCH ×2 (10:44→13:25)
--- NOTE | 2021-04-30 11:38 | Discharge Summary ---
Date of Service April 30, 2021 Admission HPI Per Admitting Provider History obtained from patient and records. Medical history significant for chronic systolic heart failure secondary to dilated cardiomyopathy (EF 25%, TTE 2019) status post ICD, history LBBB, hypertension, hyperlipidemia, DM2 on oral medications, history horseshoe kidney status post nephrectomy, past tobacco abuse. Patient not feeling well the last week. Dry cough symptoms with cough. Chest pain from coughing with shortness of breath. Feeling achy, fatigued. Nausea, vomiting, diarrhea with loss of appetite. No unusual belly pain. Patient denies fluid retention. Decreased mobility at home. Possible sick contacts at home. Patient has not received COVID-19 vaccination. Outpatient COVID-19 test done at home by patient's was positive. Patient PCP referred ER to a [facility] facility for monoclonal antibody infusion 2 days ago. Worsening symptoms at home even after antibiotic infusion. Patient brought to ER by for evaluation. Lowest O2 sats at the ER 90 on room air. IV heparin started at the ER for pulmonary embolism. No prior history of blood clots as per patient. Unknown family history due to patient having been adopted as a child. Medical History as above Surgical History : ICD, nephrectomy, vasectomy Family History : Unknown as patient adopted Personal/Social history : Past tobacco abuse, occasional EtOH intake, disabled Principal Diagnosis Covid pneumonia acute pulmonary embolism hyponatremia acute kidney injury elevated transaminases Discharge Exam CONSTITUTIONAL: WNWD, vitals as above, generally well-appearing, NAD EYES: normal conjunctivae, no scleral icterus ENT: external ear and nose normal, MMM NECK: trachea midline RESPIRATORY: clear to auscultation bilaterally, no crackles, rales or wheezes, normal respiratory effort CARDIOVASCULAR: regular rate and rhythm, S1 and 2 heard without murmurs, gallops or rubs, no JVD, no peripheral edema CHEST: inspection of chest was normal GASTROINTESTINAL: normal bowel sounds, soft, nontender, ND, no guarding MUSCULOSKELETAL: strength 5/5 throughout, head is normocephalic and atraumatic, neck supple, normal palpation of chest wall without tenderness SKIN: warm and dry NEUROLOGIC: CN 2-12 grossly intact, normal cognition, normal speech, no tremor, no gross focal deficits. PSYCHIATRIC: alert cooperative and oriented to person, place and time. Discharge Data Allergies Allergy/AdvReac Type Severity Reaction Status Date / Time No Known Allergies Allergy Unverified 12/04/21 19:17 Consultations 04/26/21 19:00 ED Decision to Admit Stat Ordered Studies Laboratory Results WBC 7.99 K/uL (4.8-10.8) 04/29/21 05:25 RBC 4.71 M/uL (4.7-6.1) 04/29/21 05:25 Hgb 13.9 g/dL (14.0-18.0) L 04/29/21 05:25 Hct 42.3 % (42-52) 04/29/21 05:25 MCV 89.8 fL (80-100) 04/29/21 05:25 MCH 29.5 pg (25-34) 04/29/21 05:25 MCHC 32.9 g/dL (32-36) 04/29/21 05:25 RDW Std Deviation 44.4 fL (36.4-46.3) 04/29/21 05:25 RDW Coeff of [place] 13.3 % (11.5-14.5) 04/29/21 05:25 Plt Count 223 K/uL (130-400) 04/29/21 05:25 MPV 10.4 fL (7.4-10.4) 04/29/21 05:25 Immature Gran % (Auto) 0.2 % 04/27/21 02:07 Neut % (Auto) 86.2 % 04/27/21 02:07 Lymph % (Auto) 7.3 % 04/27/21 02:07 [place] % (Auto) 6.1 % 04/27/21 02:07 Eos % (Auto) 0.0 % 04/27/21 02:07 Baso % (Auto) 0.2 % 04/27/21 02:07 Neut # (Auto) 4.95 K/uL (1.4-6.5) 04/27/21 02:07 Lymph # (Auto) 0.42 K/uL (1.2-3.4) L 04/27/21 02:07 [place] # (Auto) 0.35 K/uL (0.11-0.59) 04/27/21 02:07 Eos # (Auto) 0.00 K/uL (0-0.5) 04/27/21 02:07 Baso # (Auto) 0.01 K/uL (0-0.2) 04/27/21 02:07 Immature Gran # (Auto) 0.01 K/uL (0.00-0.02) 04/27/21 02:07 RBC Morphology Unremarkable 04/27/21 02:07 PT 11.6 Seconds (9.0-12.0) 04/27/21 04:07 INR 1.2 (0.9-1.1) H 04/27/21 04:07 APTT 41.8 Seconds (21.0-31.0) H 04/28/21 18:56 PTT Ratio 1.6 04/28/21 18:56 VBG pH 7.41 (7.36-7.41) 04/26/21 16:43 VBG pCO2 45 mmHg (38-50) 04/26/21 16:43 VBG pO2 15 mmHg 04/26/21 16:43 VBG HCO3 28 mmol/L 04/26/21 16:43 VBG O2 Saturation < 60.0 % 04/26/21 16:43 VBG Base Excess 2.2 mEq/L 04/26/21 16:43 Barometric Pressure 734.2 mm/Hg 04/26/21 16:43 Sodium 135 mmol/L (136-145) L 04/29/21 05:25 Potassium 4.7 mmol/L (3.5-5.1) 04/29/21 05:25 Chloride 103 mmol/L (98-107) 04/29/21 05:25 Carbon Dioxide 28 mmol/L (21-32) 04/29/21 05:25 Anion Gap 4.0 (3-11) 04/29/21 05:25 BUN 26 mg/dl (7-18) H 04/29/21 05:25 Creatinine 0.94 mg/dl (0.6-1.4) 04/30/21 06:06 Est Cr Clr Drug Dosing 98.0 ml/min 04/30/21 06:06 Est GFR ( Amer) 101.0 ml/min 04/30/21 06:06 Est GFR (Non-Af Amer) 87.2 ml/min 04/30/21 06:06 BUN/Creatinine Ratio 24.0 (10-20) H 04/29/21 05:25 Glucose 146 mg/dl (70-99) H 04/29/21 05:25 POC Glucose 94 mg/dl (70-99) 04/30/21 08:13 Osmolality 278 mOsm/kg (280-300) L 04/26/21 16:45 Lactate 1.7 mmol/L (0.4-2.0) 04/26/21 16:43 Calcium 8.4 mg/dl (8.5-10.1) L 04/29/21 05:25 Phosphorus 3.7 mg/dl (2.5-4.9) 04/29/21 05:25 Magnesium 2.2 mg/dl (1.8-2.4) 04/29/21 05:25 Total Bilirubin 0.8 mg/dl (0.2-1) 04/27/21 02:07 AST 94 U/L (15-37) H 04/30/21 06:06 ALT 224 (12-78) H 04/30/21 06:06 Alkaline Phosphatase 98 U/L (45-117) 04/27/21 02:07 Troponin I 0.024 ng/ml (0-0.045) 04/26/21 16:20 C-Reactive Protein 1.43 mg/dl (0-0.29) H 04/29/21 05:25 Total Protein 6.3 gm/dl (6.4-8.2) L 04/27/21 02:07 Albumin 2.6 gm/dl (3.4-5.0) L 04/27/21 02:07 Globulin 3.7 gm/dl (2.5-4.0) 04/27/21 02:07 Albumin/Globulin Ratio 0.7 (0.9-2) L 04/27/21 02:07 Procalcitonin 0.27 ng/ml (0-0.5) 04/26/21 16:20 TSH 2.760 uIu/ml (0.300-4.500) 04/26/21 16:20 Urine Color Dark Yellow 04/27/21 20:50 Urine Appearance Clear (Clear) 04/27/21 20:50 Urine pH 5.5 (4.5-7.5) 04/27/21 20:50 Ur Specific [place] 1.027 (1.000-1.030) 04/27/21 20:50 Urine Protein 3+ (Negative) H 04/27/21 20:50 Urine Glucose (UA) Negative (Negative) 04/27/21 20:50 Urine Ketones Negative (Negative) 04/27/21 20:50 Urine Blood Trace (Negative) H 04/27/21 20:50 Urine Nitrite Negative (Negative) 04/27/21 20:50 Urine Bilirubin Negative (Negative) 04/27/21 20:50 Urine Urobilinogen Negative (Negative) 04/27/21 20:50 Ur Leukocyte Esterase Negative (Negative) 04/27/21 20:50 Urine WBC (Auto) 1-5 /hpf (0-5) 04/27/21 20:50 Urine RBC (Auto) 0-4 /hpf (0-4) 04/27/21 20:50 U Hyaline Cast (Auto) 1-5 /lpf (0-5) 04/27/21 20:50 U Epithel Cells (Auto) 10-20 /lpf (0-5) H 04/27/21 20:50 Urine Bacteria (Auto) Negative (Negative) 04/27/21 20:50 SARS-CoV-2 (PCR) POSITIVE (Negative) A* 04/26/21 19:35 Influenza Type A (PCR) Negative (Neg) 04/26/21 19:35 Influenza Type B (PCR) Negative (Neg) 04/26/21 19:35 RSV (RT-PCR) Negative (Neg) 04/26/21 19:35 Impressions Chest CTA 04/26/21 16:16 CT ANGIOGRAPHY OF THE CHEST, PULMONARY EMBOLUS PROTOCOL CLINICAL HISTORY: Shortness of breath. Cough. Evaluate for pulmonary embolus. COMPARISON STUDY: Chest radiograph performed earlier today. TECHNIQUE: Following IV administration of 120 mL of Optiray, helical axial images of the chest were obtained utilizing the pulmonary embolus protocol. Maximal intensity projections and sagittal and coronal reformats were viewed on an independent 3D workstation. IV contrast was administered without complication. Automated exposure control was utilized for the study. A dose lowering technique was utilized adhering to the principles of ALARA. CT DOSE: 558.35 mGy.cm FINDINGS: A left subclavian biventricular pacer/AICD is in place. Note is made of a small subsegmental pulmonary embolus within the right lower lobe shown on axial image 73 of 276. No additional pulmonary emboli are identified. There is mild cardiomegaly. No pericardial effusion is present. Central airways are patent. Moderate multifocal lower lobe predominant ground glass opacities are noted. There is no cavitation. Central airways are patent. Mildly enlarged bilateral hilar lymph nodes are likely reactive. There are several partially calcified left hilar and mediastinal lymph nodes. There is no pneumothorax or pleural effusion. No suspicious lesions are identified within visualized portions of the bony thorax. Gallbladder is surgically absent. IMPRESSION: 1. Small subsegmental pulmonary embolus within the right lower lobe. No additional pulmonary emboli. 2. Moderate multifocal lower lobe predominant groundglass opacities consistent with viral pneumonia. 3. Mildly enlarged bilateral hilar lymph nodes which are likely reactive. ACT 112: Negative or not required by law. Electronically signed by: Mikey Beltran M.D. 04/26/2021 6:52 PM Chest X-Ray 04/26/21 16:16 XR chest 1V portable CLINICAL HISTORY: SEPSIS COMPARISON STUDY: Chest radiograph October 25, 2019. FINDINGS: Lung volumes are at the lower limits of normal. There is no pneumothorax or pleural effusion. Incidental note is made of multiple old right rib fractures. There is mild cardiomegaly without evidence for pulmonary edema. Left subclavian biventricular pacer/AICD is in place. Mild right lower lung opacity is present. There is also possible left basilar consolidation. IMPRESSION: Bilateral lower lung opacities which favor an infectious process. Radiographic follow-up to ensure resolution is recommended. ACT 112: Negative or not required by law. Electronically signed by: Mikey Beltran M.D. 04/26/2021 5:11 PM Hospital Course (1) Pneumonia due to 2019-nCoV: declines to prone declines vaccination Cont with decadron and remdesivir. Cont oxygen supplementaton. (2) Pulmonary embolism: Pt denies any pain or pleurisy. Cont oxygen supplementation. Transitioning him from heparin drip to apixaban (3) Hyponatremia: Possibly related to poor p.o. intake or dehydration, resolving with fluids. (4) HTN (hypertension): Lisinopril held on admission secondary to LIOR. Continue to hold now. (5) LIOR (acute kidney injury): Creatinine improving but not quite to baseline. Continue to encourage oral hydration and hold lisinopril. BMP in a.m. (6) DMII (diabetes mellitus, type 2): Chronic, controlled, continue basal bolus insulin. Euglycemic. (7) Elevated LFTs: Resolving, Patient is on atorvastatin at home, has COVID-19 virus. Plan to repeat LFTs as outpatient to ensure normalization. (8) DVT prophylaxis: apixaban Full code Disposition-to home when medically stable. DO Myn[facility] Hospitalist Discharge Plan Discharge Items Patient Disposition: Home - Self-Care Reason For Visit: RESPIRATORY FAILURE, COVID+ Discharge Diagnosis: Covid pneumonia acute pulmonary embolism hyponatremia acute kidney injury elevated transaminases Condition on Discharge: Good Activity: Resume your previous activity Non-emergency contact: Primary Care Provider Call non-emergency contact if: you have any medication questions, your symptoms worsen and your pain is not controlled Follow-up/Referrals: Toyin Houston MD [Outside Practitioners] - (Date & Time 05/02/2021 2:00 PM Provider Toyin Houston MD Department [facility] (YOUR PREVIOUSLY SCHEDULED APPOINTEMNT FOR 05/01/21 HAS BEEN CANCELLED.) PLEASE NOTE THAT THIS IS A TELEHEALTH APPOINTMENT. PLEASE FOLLOW THE INSTRUCTIONS PROVIDED IN YOUR EMAIL. IF YOU HAVE ANY QUESTIONS REGARDING THIS APPOINTMENT, PLEASE CALL . ) Diet: Carb Consistent or DM2 Pending Studies at Discharge: No Stand-Alone Forms: My [facility] Medications and DC Order Prescriptions: New apixaban 5 mg tablet 5 mg PO UD Qty: 74 RF: 0 (DME) Oxygen Home Liters Per Minute See Rx Instructions .Route Qty: 1 RF: 0 Continued carvedilol 25 mg tablet 25 mg PO BIDM RF: 0 fluoxetine 20 mg capsule 20 mg PO DAILY RF: 0 atorvastatin 40 mg tablet 40 mg PO DAILY RF: 0 lisinopril 20 mg tablet 20 mg PO DAILY RF: 0 metformin 500 mg tablet 500 mg PO BIDM RF: 0 fluticasone propionate [Flonase Allergy Relief] 50 mcg/actuation [place],Suspension 1 spray INTRANASAL BID RF: 0 albuterol sulfate 90 mcg/actuation HFA aerosol inhaler 2 puff INHALATION Q6H PRN (Reason: Shortness Of Breath Or Wheezing) RF: 0 sumatriptan succinate 100 mg tablet 100 mg PO DIRECTED PRN (Reason: Migraine Headache) RF: 0 cyclobenzaprine 10 mg Tablet 10 mg PO HS PRN (Reason: Spasms) RF: 0 tramadol 50 mg Tablet 50 mg PO BID PRN (Reason: Pain) RF: 0 Admission Data Admit Date/Time: 04/26/21 20:22 Attending Provider: Lubna Graff Admit Provider: Jalil Miller Primary Care Provider: PCP,NO Other Providers: Jalil Miller
[2021-04-30] MEDS ORDERED: FLUoxetine HCL 20 MG CAP PO SCH (11:45)
== END 2021-04-30 16:54 | disposition home or self-care (01) | DRG 177 ==
LOC: ED 15:32 → EDINP 20:22 → 2N 04-29 13:18